=== PATIENT | male | born 1980 | race Caucasian/White ===

== ENCOUNTER 2020-06-09 12:59 | Outpatient (CLI) | payer MEDICARE, SELFPAY ==
--- NOTE | 2020-06-15 14:53 | WPDSIXMINUTE ---
Six Minute Walk Six Minute Walk: DOS: 06/09/2020 REQUESTING: Dr Rawls REASON FOR TESTING: shortness of breath SIX MINUTE WALK This test was conducted per ATS guidelines. The initial saturation was 96%, pulse was 85. The patient walked for 6 minutes without stopping, lowest saturation was 90%. Pulse increased to 106. The saturation was maintained at 91% after waking 2 and a half minutes through the end of walking. During recovery, the saturation returned to baseline. Distance walked was 900 feet/ 274 meters. IMPRESSION: This walk study shows a drop of 6% saturation from 96% to 90%, without dickson hypoxemia. No supplemental oxygen is indicated with exertion. Distance walked is less than expected for age.
--- NOTE | 2020-06-15 15:02 | P.PCNPFT_ITS ---
PFT Interpretation PFT Interpretation: DOS: 06/09/2020 REQUESTING: Dr Rawls REASON FOR TESTING: shortness of breath PULMONARY FUNCTION TESTS Testing was not reliable. The patient had a vasovagal syncopal episode while completing spirometry and he was unable to perform a post spirometry maneuver due to nearly passing out. Spirometry: FEV1 is 34%, 1.49 L severely decreased. FVC 65% 3.9 L. The FEV1/ FVC ratio is reduced. HDE77-81% severely reduced 13%. No bronchodilator was given. Lung volumes: TLC normal 98%. RV increased 137% consistent with air trapping. Increased airway resistance. Diffusion: DLCO moderately reduced 42%. Flow volume loop: Scooping of the expiratory limb consistent with obstruction. IMPRESSION: Extremely severe obstructive ventilatory impairment, mild air trapping, moderate diffusion impairment. No bronchodilator was given as the patient had a vasovagal episode and was unable to perform the post- bronchodilator maneuver. This pattern is consistent with emphysema. Compared to a prior study on 03/25/2015 values are similar. FEV1 was 40% now 34%. Air trapping was present. DLCO was 47% now 42%. Sherry Rawls MD
== END 2020-06-09 13:00 | disposition home or self-care (01) ==
PROVIDERS: PCP Internal Medicine; Visit Provider Internal Medicine Critical Care Medicine
DX: E88.01 Alpha-1-antitrypsin deficiency (principal); J44.9 Chronic obstructive pulmonary disease, unspecified; R94.2 Abnormal results of pulmonary function studies
CPT/HCPCS: 94060; 94618; 94726; 94729

== ENCOUNTER 2020-06-23 12:16 | Inpatient (IN) | payer MEDICARE, SELFPAY ==
[2020-06-23] VITALS (12 sets, daily range): BP systolic 107–142; BP diastolic 70–91; PULSE 72–129; RESP 20–48; TEMP 36.7–37.7; O2SAT 88–95; BMI 32.4
--- NOTE | ~2020-06-23 | XR_ITS ---
EXAMINATION: XR chest 1V portable DATE: 06/26/2020 06:19 INDICATION: Respiratory failure. COVID-19 pneumonia. TECHNIQUE: A single frontal view of the chest was obtained. COMPARISON: Chest single view 06/23/2020, chest CT 01/23/2015 FINDINGS: There are lucencies in the lungs, consistent with emphysema. There are mild airspace opacit ies in right lower lung zone and left mid and lower lung zones. No pleural effusion or pneumothorax. The heart size is normal. There is a stent in the superior vena cava. There is an electronic implant in left anterior chest wall. IMPRESSION: 1. Stable mild airspace opacities in right lower lung zone and left mid and lower lung zones, consist ent with atelectasis versus pneumonia. 2. Severe emphysema. Reviewed, dictated and finalized at location A. CTOR OF COMMUNITY EDUCATION IMPRESSION: 1. Stable mild airspace opacities in right lower lung zone and left mid and low er lung zones, consistent with atelectasis versus pneumonia. 2. Severe emphysema.
--- NOTE | ~2020-06-23 | XR_ITS ---
XR chest 1V portable DATE: 06/23/2020 13:06 INDICATION: Chest pain, shortness of breath. Covid-positive. TECHNIQUE: 2 portable AP views on 06/23/2020 at 1301 hours COMPARISON: 01/23/2015 CT pulmonary scan 01/20/2015 2 view chest FINDINGS: Superior vena cava stent devices again noted. teletypesetter monitor lead overlies the medial lowe r left chest. The lungs are hyperinflated, consistent with chronic obstructive pulmonary disease. No pulmonary infi ltrate or consolidation, pleural effusion or pulmonary vascular congestion or pneumothorax is evident . Normal heart size. Diffuse osteopenia. IMPRESSION: COPD; no active pulmonary disease is noted Reviewed, dictated and finalized at location B. L DIGGER
--- NOTE | 2020-06-23 12:31 | ECG_ITS ---
Measurements Intervals [place] Rate: 84 P: 93 HI: 150 QRS: 75 QRSD: 101 T: 60 QT: 364 QTc: 430 Interpretive Statements SINUS RHYTHM BORDERLINE T WAVE ABNORMALITY- HIGH LATERAL LEADS BASELINE ARTIFACT- I, II, III, AVR, AVL, AVF, V1-V6 BORDERLINE ECG Electronically Signed On 06-23-2020 13:23:28 COMMUNITY RELATIONS ADVISOR by Jose Kothari D.O.
--- NOTE | 2020-06-23 12:48 | ED.SOB ---
HPI - SOB/Dyspnea General Chief Complaint: Shortness of Breath/Dyspnea Stated Complaint: covd +, sob Time Seen by Provider: 06/23/20 12:48 History of Present Illness HPI Narrative: 40 yo male w/ h/o alpha-1 antitrypsin deficiency presents to the ED for SOB. He began having symptoms of COVID-19 about 8 days ago. This included cough, headache, SOB. He subsequently tested positive for COVID-19. He tried to stay at home, but symptoms became worse. room air oxygen saturation was 88%. He has respirtory issues at baseline due to alpha-1 antitrypsin deficiency and sees Dr. hall. Related Data Home Medications Medication Instructions Recorded Confirmed duloxetine 30 mg capsule,delayed 30 mg PO DAILY 11/28/19 11/28/19 release fluticasone fur. 100 mcg-umeclid 1 inhalation INHALATION Q24H 11/28/19 11/28/19 62.5 mcg-vilant 25 mcg inhalat.powder quetiapine 200 mg tablet 200 mg PO DAILY tablet 11/28/19 11/28/19 albuterol sulfate 90 mcg/actuation 2 puff INHALATION Q4H PRN gm 04/27/20 aerosol inhaler multivitamin 1 tablet PO DAILY 04/27/20 trazodone 100 mg tablet 300 mg PO .hs tablet 04/27/20 Allergies Allergy/AdvReac Type Severity Reaction Status Date / Time MOLD Allergy Mild Unknown Uncoded 06/23/20 12:47 Review of Systems Review of Systems: All systems reviewed & are unremarkable except as noted in HPI and below Constitutional: Constitutional: Reports chills and Reports fever(s) Cardiovascular: Cardiovascular: Denies chest pain Respiratory: Respiratory: Reports cough, Reports dyspnea and Reports wheezing Gastrointestinal: Gastrointestinal: Denies abdominal pain, Reports nausea and Denies vomiting Genitourinary: Genitourinary: Denies dysuria Neurologic: Denies confusion Endocrine: Endocrine: Reports fatigue PMFSH Past Medical History Medical History Kylhc-2-lfzhhgjyfeg deficiency Asthma-COPD overlap syndrome Bipolar 1 disorder, depressed, full remission Chest pain Closed kidney laceration Engages in vaping History of tobacco abuse Hydrocele Oxygen dependent Pre-diabetes Severe chronic obstructive pulmonary disease Shortness of Breath SVC syndrome Syncope Surgical History Surgical History History of loop recorder Family History Family History Father Hypertension Family history of diabetes mellitus in first degree relative Mother Hypertension Social History Social History Smoking status: Former smoker Tobacco type: e-cigarettes/vaping Smoking end date: 08/07/06 Alcohol intake: never Drinks per week: 1 Gender identity (if verbalized by the patient): Male Exam Const: General: no acute distress, alert and ill appearing Orientation/consciousness: patient oriented x3 HENMT: Head: normal to inspection Neck: Neck: normal visual inspection Chest: Chest palpation & inspection: normal inspection of the chest Resp: Effort & Inspection: tachypneic Auscultation: wheezes Cardio: Rate: regular rate Rhythm: regular rhythm Skin: General skin exam: normal color Neuro: General: patient oriented x3, moves all extremities and CN's II-XI intact bilaterally Speech: normal speech Extrem: General: normal to inspection and no edema Course Vital Signs Vital signs: Vital Signs Temperature 37.0 C 06/23/20 12:23 Pulse Rate 129 H 06/23/20 12:23 Respiratory Rate 30 H 06/23/20 12:23 Blood Pressure 124/81 06/23/20 12:23 Pulse Oximetry 88 L 06/23/20 12:23 Temperature 37.0 C 06/23/20 12:23 Pulse Rate 81 06/23/20 14:02 Respiratory Rate 26 H 06/23/20 14:02 Blood Pressure 116/74 06/23/20 14:02 Pulse Oximetry 93 06/23/20 14:02 MDM - SOB/Dyspnea MDM Narrative Medical decision making narrative: He has new oxygen requireme
[2020-06-23 13:04] LABS: Hematocrit 44.2 % (42.0-52.0); Hemoglobin 14.8 g/dL (14.0-18.0); Immature Granulocyte Absolute 0.03 K/mm3 (0.00-0.031); Immature Granulocyte Percent A 0.6 % (0-0.5); Lymphocytes Absolute Auto 0.71 K/mm3 (0.9-3.2); Lymphocytes Percent Auto 13.7 % (18.3-44.2); Mean Corpuscular HGB Conc 33.5 g/dl (32-36); Mean Corpuscular Hemoglobin 30.8 pg (26-34); Mean Corpuscular Volume 91.9 fl (80-100); Mean Platelet Volume 10.3 fl (7.4-10.4); Monocytes Absolute Auto 0.4 K/mm3 (0.1-0.6); Monocytes Percent Auto 7.7 % (2.6-8.5); Neutrophils Absolute Auto 4.1 K/mm3 (1.3-6.7); Platelet Count Result 181 k/mm3 (150-375); Red Blood Count 4.81 M/mm3 (4.6-6.20); Red Cell Distribution Width 12.2 % (11.5-14.5); White Blood Count 5.2 K/mm3 (4.5-10.0)
--- NOTE | 2020-06-23 13:19 | PC.NURSE ---
patient medicated as ordered. respiratory now in room. call light in reach. cell phone in reach. on equipment monitor phototypesetting. side rails up x 2.
[2020-06-23] MEDS: ALBUTEROL SULFATE (*SP) AEROSOL 1 PUFF 6 PUFF INHALATION (13:25)
[2020-06-23 13:30] LABS: Alanine Aminotransferase 154 U/L (4-50); Albumin Level 3.7 g/dL (3.5-5.1); Alkaline Phosphatase 76 U/L (38-126); Anion Gap 8 mmol/L (8-16); Aspartate Amino Transferase 71 U/L (17-59); Bilirubin,Total 0.4 mg/dL (0.2-1.3); Blood Urea Nitrogen 14 mg/dL (9-20); Calcium 8.8 mg/dL (8.4-10.2); Carbon Dioxide 22 mmol/L (22-30); Chloride 112 mmol/L (98-107); Estimated CRCL calculation 167 ml/min; Estimated Glomerular Filt Rate > 60; Glucose 173 mg/dL (75-110); Potassium 3.6 mmol/L (3.4-5.0); Sodium 142 mmol/L (137-145)
--- NOTE | 2020-06-23 16:15 | ADMGEN ---
This patient, Zaheer Escalera, was admitted to 3 [facility] Surg Room 322-01 @ 1607. Patient/family oriented to hospital policies and general routines including ID bracelet, bed and alarms, visiting hours, pain management, procedures, bathroom and other care routines, personal items, smoking policy, room service/diet, and visiting hours. Information on how to activate the Rapid Response Team has been discussed. Patient/Family are encouraged to report perceived risks to care and to ask questions if they do not understand what they are told or what they should do.
[2020-06-23] MEDS: traZODone HCL 50 MG TABLET 100 MG PO (20:42)
[2020-06-23] MEDS: busPIRone HCL 10 MG TABLET PO (20:43)
[2020-06-23] MEDS: DULoxetine HCL 60 MG CAPSULE.DR PO (20:43)
[2020-06-23] MEDS: TOPIRAMATE 25 MG TABLET 50 MG PO (20:44)
[2020-06-23] MEDS: QUEtiapine FUMARATE 100 MG TABLET 200 MG PO (20:44)
[2020-06-23] MEDS: CLOPIDOGREL BISULFATE 75 MG TABLET PO (20:44)
[2020-06-23] MEDS: TOPIRAMATE 100 MG TABLET PO (20:44)
[2020-06-23] MEDS: BENZONATATE 100 MG CAPSULE PO (20:45)
[2020-06-23] MEDS: ACETAMINOPHEN 325 MG TABLET 650 MG PO (20:45)
--- NOTE | 2020-06-23 21:37 | PM.IMHP ---
H&P: HPI History of Present Illness Date/Time: 06/23/201729 Chief complaint: Shortness of breath; COVID + Narrative: 06/23/201729 The supervising physician for this history and physical is Dr Felicia Ramirez. Mr. Escalera is a 40yo M with history of alpha-1 antitrypsin deficiency with severe COPD, bipolar disorder with anxiety and depression, history of MRSA endocarditis, vasovagal syncope and chronic migraines who presented to the ED for evaluation of worsening shortness of breath. He describes that he was seen at [facility] in [place] on 06/15/20 for similar symptoms and was discharged from the emergency department that day. His symptoms have been worsening since then and have included fevers/chills and body aches, loss of appetite, loss of taste and smell. He underwent a CT chest with contrast at [facility] that day and his records show CT demonstrated no active cardiopulmonary disease or evidence of pulmonary embolism. His established safety grooving machine operator is Dr. Rawls. He has been using his albuterol nebulizer around twice per day and was not feeling any better so proceeded to the ED. Reports some chest tightness worse with coughing and deep breaths. He was noted to be hypoxic in the ED with O2 saturations at 88% on room air. He is noted to require 2L oxygen at night every night, in fact is also to be using 2-3 L/min supplemental O2 as needed during the day. Workup thus far includes a chest x-ray that shows no active cardiopulmonary disease, routine lab work that is grossly normal. He was placed on supplemental oxygen and started on dexamethasone in the ED. He is admitted to the hospitalist service for further management of acute on chronic respiratory failure secondary to COVID-19. Review of Systems Review of Systems: Narrative: Patient reports shortness of breath, chest tightness worse with cough. Cough productive with green sputum, worse than his baseline. He was nauseous with vomiting yesterday, resolved today. He describes the headache and has chronic migraines. He denies any dizziness or loss of consciousness. Denies diarrhea, constipation, melena, hematochezia. Twelve systems were reviewed with pertinent positives and negatives as per HPI. Except as documented, all other systems were reviewed and are negative. 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 Rawls. Asthma-COPD overlap syndrome Bipolar 1 disorder, depressed, full remission Chest pain Closed kidney laceration Endocarditis History of MRSA endocarditis 2016 Engages in vaping History of tobacco abuse Hydrocele Oxygen dependent Pre-diabetes Severe chronic obstructive pulmonary disease Shortness of Breath SVC syndrome 2016 - patient had complications of a SVC thrombus after an SVC stent was placed for treatment of SVC syndrome after a Port-A-Cath infection Syncope Patient has issues with vasovagal syncope. Loop recorder placed August 2019. Surgical History Surgical History H/O vasectomy 2010 History of loop recorder Family History Family History Father Family history of diabetes mellitus in first degree relative Hypertension Mother Hypertension Grandparent Lung cancer Social History Social History (Updated 06/24/20 @ 07:15 by Rhonda Sifuentes PA-C) Social History: Mr. Escalera lives currently in a camper with his and two of his three daughters. 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 He used to drink alcohol around 1 to 2 drinks per month but he reports he has not had any alcohol since Apr 2020. He reports he used to smoke 1 pack per day cigarettes x 20 years prior to
[2020-06-24] VITALS (8 sets, daily range): BP systolic 102–151; BP diastolic 58–92; PULSE 53–91; RESP 16–24; TEMP 36.2–37; O2SAT 91–94
[2020-06-24] MEDS: ALBUTEROL SULFATE (*SP) AEROSOL 1 PUFF 2 PUFF INHALATION ×4 (03:27→20:01)
[2020-06-24] MEDS: DEXAMETHASONE SOD PHOS INJ 4 MG/ML VIAL 6 MG IV PUSH (10:10)
[2020-06-24] MEDS: BENZONATATE 100 MG CAPSULE PO ×2 (10:11→18:19)
[2020-06-24] MEDS: ACETAMINOPHEN 325 MG TABLET 650 MG PO ×2 (10:18→21:39)
--- NOTE | 2020-06-24 13:10 | PM.IMPN ---
Progress Note: A&P Assessment and Plan (1) Acute on chronic respiratory failure with hypoxia: Code(s): J96.21 - Acute and chronic respiratory failure with hypoxia Status: Acute Assessment and Plan: Patient tested positive for COVID-19 on 06/15/20 at [facility]. His symptoms began 06/14/20. Patient is mildly hypoxic. He is known to use 2L supplemental oxygen every night, also to be using 2-3 L supplemental O2 as needed during the day even prior to anabel COVID. Continue albuterol MDI and supplemental O2; monitor O2 saturations. Continue azithromycin. Continue home Symbicort. He has been started on dexamethasone by the ED provider, continue this. (2) Asthma-COPD overlap syndrome: Code(s): J44.9 - Chronic obstructive pulmonary disease, unspecified Status: Acute Assessment and Plan: See above. Continue steroids and albuterol. (3) COVID-19: Code(s): U07.1 - COVID-19 Status: Acute Assessment and Plan: COVID positive 06/15/20. Continue droplet isolation. (4) Xgtso-3-arggdiaizpw deficiency: Code(s): E88.01 - Vuqjz-5-tgxegtyycxc deficiency Status: Chronic Assessment and Plan: Follows with Dr. Rawls. He used to be on replacement therapy however has not been able to get this medication this year due to insurance changes. Appreciate Dr. Rawls's recommendations. (5) Bipolar 1 disorder, depressed, full remission: Code(s): F31.76 - Bipolar disorder, in full remission, most recent episode depressed Status: Chronic Assessment and Plan: Stable. Continue home medications. Subjective Date/time seen: 06/24/20 1130 Interval history: Mr. Escalera is a 40yo M admitted for acute on chronic respiratory failure, COVID-19. He reports feeling about the same as yesterday. Not really any improvement in his shortness of breath or productive cough. He has significant body aches and headache. He describes chest tightness worse with deep breath and coughing. No nausea or vomiting, appetite improving. Review of Systems Review of Systems: All systems reviewed & are unremarkable except as noted in HPI and below Exam Narrative: Exam Narrative: General: Male resting comfortably supine in bed eating dinner in mild respiratory distress. HEENT: Normocephalic, atraumatic, EOMI, oropharynx clear without erythema or exudate. Neck: Supple. Chest: Diffuse expiratory wheezing bilaterally. Tachypneic with conversational dyspnea. Tolerating 2 L O2 nasal cannula Heart: Heart rate and rhythm are regular. Abdomen: Soft, nontender, nondistended, bowel sounds present. Extremities: Radial and pedal pulses 2+ bilateral. No edema, cyanosis or clubbing. Neurologic: Alert and oriented. No focal neurological deficits are appreciated. Speech is clear. Psychiatric: Mood and affect are normal; pleasant and cooperative. Objective Data Vital Signs Vital Signs: Last Vital Signs Temp 98.6 F 06/24/20 16:00 Pulse 75 06/24/20 16:00 Resp 18 06/24/20 16:00 BP 127/80 06/24/20 16:00 Pulse Ox 92 06/24/20 16:00 Intake/Output Intake/Output: Intake & Output 06/21/20 06/22/20 06/23/20 06/24/20 23:59 23:59 23:59 23:59 Intake Total 550 740 Balance 550 740 Meds/Results Medications: Active Medications Generic Name Dose Route Start Last Admin Trade Name Freq PRN Reason Stop Dose Admin Acetaminophen 650 mg 06/23/20 17:43 06/24/20 10:18 Acetaminophen 325 Mg Tablet PO 650 mg Q4H PRN Administration Pain RATED 1-3 or Fever Albuterol 2 puff 06/23/20 16:00 06/24/20 09:44 Albuterol Sulfate (*Sp) Aerosol 1 Puff INHALATION 2 puff Q4HRT PEPE Administration Benzonatate 100 mg 06/23/20 17:35 06/24/20 10
--- NOTE | 2020-06-24 17:48 | PCRCNOTE ---
Window of time for administration has passed. See next scheduled administration.
[2020-06-24] MEDS: QUEtiapine FUMARATE 100 MG TABLET 200 MG PO (21:37)
[2020-06-24] MEDS: traZODone HCL 50 MG TABLET 100 MG PO (21:38)
[2020-06-24] MEDS: TOPIRAMATE 25 MG TABLET 50 MG PO (21:38)
[2020-06-24] MEDS: DULoxetine HCL 60 MG CAPSULE.DR PO (21:38)
[2020-06-24] MEDS: busPIRone HCL 10 MG TABLET PO (21:38)
[2020-06-24] MEDS: CLOPIDOGREL BISULFATE 75 MG TABLET PO (21:38)
[2020-06-24] MEDS: TOPIRAMATE 100 MG TABLET PO (21:38)
[2020-06-25] VITALS (16 sets, daily range): BP systolic 113–123; BP diastolic 56–74; PULSE 54–99; RESP 16–22; TEMP 36.1–36.9; O2SAT 85–93
[2020-06-25] MEDS: ALBUTEROL SULFATE (*SP) AEROSOL 1 PUFF 2 PUFF INHALATION ×6 (00:17→21:32)
[2020-06-25 06:46] LABS: Hemoglobin 13.7 g/dL (14.0-18.0); Mean Corpuscular HGB Conc 34.3 g/dl (32-36); Mean Corpuscular Hemoglobin 30.6 pg (26-34); Mean Corpuscular Volume 89.5 fl (80-100); Mean Platelet Volume 9.8 fl (7.4-10.4); Platelet Count Result 314 k/mm3 (150-375); Red Blood Count 4.47 M/mm3 (4.6-6.20); Red Cell Distribution Width 11.9 % (11.5-14.5); White Blood Count 6.6 K/mm3 (4.5-10.0)
[2020-06-25 07:10] LABS: Anion Gap 7 mmol/L (8-16); Blood Urea Nitrogen 14 mg/dL (9-20); CRP 1.6 mg/dL (<1.0); Calcium 8.9 mg/dL (8.4-10.2); Carbon Dioxide 22 mmol/L (22-30); Chloride 111 mmol/L (98-107); Estimated CRCL calculation 151 ml/min; Estimated Glomerular Filt Rate > 60; Glucose 163 mg/dL (75-110); Magnesium 2.4 mg/dL (1.6-2.3); Potassium 3.4 mmol/L (3.4-5.0); Sodium 140 mmol/L (137-145)
[2020-06-25] MEDS: DEXAMETHASONE SOD PHOS INJ 4 MG/ML VIAL 6 MG IV PUSH (08:49)
[2020-06-25] MEDS: POTASSIUM CHLORIDE 20 MEQ TABLET PO (08:49)
[2020-06-25] MEDS: BENZONATATE 100 MG CAPSULE PO ×2 (08:55→20:31)
--- NOTE | 2020-06-25 13:10 | HOMEO2EVAL ---
Home Oxygen Evaluation RC: Home Oxygen (O2) Evaluation Start: 06/25/20 08:41 Freq: ONCE Status: Active Protocol: RPE Activity Type Activity Date Activity User E-Sign Co-Sign Detail Recorded Client Recorded Date Recorded By Document 06/25/20 11:30 ARIN [id number] 06/25/20 13:10 ARIN Document 06/25/20 11:33 ARIN [email or web address] 06/25/20 13:10 ARIN Document 06/25/20 11:36 ARIN [email or web address] 06/25/20 13:10 ARIN Document 06/25/20 11:40 ARIN [email or web address] 06/25/20 13:10 ARIN Document 06/25/20 11:42 ARIN [email or web address] 06/25/20 13:10 ARIN Document 06/25/20 11:45 ARIN [email or web address] 06/25/20 13:10 [facility] Document 06/25/20 11:55 ARIN [email or web address] 06/25/20 13:10 ARIN 06/25/20 06/25/20 06/25/20 11:30 11:33 11:36 Home O2 Evaluation Test Phase Resting Resting Resting Oxygen Delivery Room Air Nasal Cannula Nasal Cannula Oxygen Flow Rate (L/min) 1 2 Pulse Oximetry (90-100 %) 87 L 88 L 91 Home Oxygen Evaluation Comments Treatment Charges O2 Evaluation 06/25/20 06/25/20 06/25/20 11:40 11:42 11:45 Home O2 Evaluation Test Phase Exercise Exercise Exercise Oxygen Delivery Nasal Cannula Nasal Cannula Nasal Cannula Oxygen Flow Rate (L/min) 2 3 4 Pulse Oximetry (90-100 %) 85 L 87 L 90 Home Oxygen Evaluation Comments Treatment Charges 06/25/20 11:55 Home O2 Evaluation Test Phase Resting Oxygen Delivery Nasal Cannula Oxygen Flow Rate (L/min) 2 Pulse Oximetry (90-100 %) 91 Home Oxygen Evaluation Comments PT REQUIRES 2L AT REST AND 4L WITH EXERTION Treatment Charges
--- NOTE | 2020-06-25 13:15 | PCRCNOTE ---
PT CURRENTLY HAS HOME O2 WITH [facility]. SPOKE TO TRICIA AT [facility]. SHE IS AWARE OF INCREASED O2 NEEDS. PT STATED HE DOES HAVE A PORTABLE O2 TANK FOR TRANSPORT THAT HIS FAMILY WILL BRING FROM HOME UPON DISCHARGE. WILL FAX OVER REQUIRED ORDER/PAPERWORK FOR NEW REQUIREMENTS AND FOLLOW NEEDED.
--- NOTE | 2020-06-25 14:20 | PM.CNPUL ---
Assessment and Plan Assessment and plan (1) COVID-19: Code(s): U07.1 - COVID-19 Status: Acute Assessment and Plan: He has COVID infection with increased worsening of his severe COPD. CXR does not show infiltrates, however he has severe COPD with hyperlucency, so an infiltrate may be harder to see on a plain film. He is on higher O2 now, uses O2 at home at night and only sometimes in the day. Now on 2 L/min, respiratory rate has been 24, occasionally up to 40. He is able to walk to the bathroom and keep food down, however he is extremely short of breath and feels exhausted. I spoke with Rhonad Sifuentes PA-C. Will add remdesivir to his dexamethasone for COVID treatment, continue O2, nasal saline for crusted dry nasal bleeding, may be better with a mask than cannula for comfort. He wants a shower and clean sheets. Will add routine prophylactic dose anticoagulation with Lovenox. He had a home O2 study today, needs 4 at rest and 5 L/min with Oxymizer with exertion. This is more than he needed at home, however he has end stage COPD at baseline due to his alpha-1 so this is not excessive amount of O2. He may be close to being able to go home, however he feels just as bad as he did at admission, and should be somewhat better before leaving. We had a long visit, I called the RN to have his room temp addressed as it was sweltering in his room and he was uncomfortable. With COVID, fans are not allowed. Maintenance Dept was notifoed. We will check his records from [facility] to get the dates of testing and any treatment he had there. (2) Asthma-COPD overlap syndrome: Code(s): J44.9 - Chronic obstructive pulmonary disease, unspecified Status: Acute Assessment and Plan: life long asthma and COPD since age 29, quit smoking 2006 (3) Shortness of Breath: Code(s): R06.02 - Shortness of breath Status: Acute Assessment and Plan: increased prior to this admission (4) History of tobacco abuse: Code(s): Z87.891 - Personal history of nicotine dependence Status: Acute Assessment and Plan: quit 2006 (5) Olyfs-0-gqoeowxuxll deficiency: Code(s): E88.01 - Pufgl-9-zvaquinuieb deficiency Status: Chronic Assessment and Plan: not on replacement therapy due to lack of insurance coverage History of Present Illness History of Present Illness Consult date: 06/25/20 Requesting physician: Rhonda Sifuentes PA-C Reason for consult: other (COVID exacerbation of COPD with alpha-1) Chief complaint: Shortness of breath; COVID + Narrative: NEW: Zaheer Escalera is a 41 yo man with alpha-1 antitrypsin deficiency, lifelong asthma. He came for an initial office visit 04/28; has not been able to get on replacement therapy due to insurance issues. He had oxygen at home to use at night and during the day p.r.n. His became infected with COVID and brought it home to the family. It spread through everyone, his children, in-laws, and everyone else had mild disease however he had loss of taste and smell, increased shortness of breath, coughing, minimal sputum, poor appetite, high fevers. He was seen at [facility] in [place] Jun 15, was sent home. He worsened, came here Jun 23 and was admitted with hypoxemia 88%. He has been here 2 days, does not feel any better. Symptoms are persistent except that his taste and smell have improved a little. He is not short of breath walking short distances to the bathroom but longer distances or more activity, he feels tired and short of breath. His labs cuauhtemoc increase in AST 71, ALT 154, and mild increase in CRP 1.6. His CXR does nto show infiltrate however he has end stage COPD with emphysema, so he is hyp
--- NOTE | 2020-06-25 16:32 | PM.IMPN ---
Progress Note: A&P Assessment and Plan (1) Acute on chronic respiratory failure with hypoxia: Code(s): J96.21 - Acute and chronic respiratory failure with hypoxia Status: Acute Assessment and Plan: Patient tested positive for COVID-19 on 06/15/20 at [facility]. His symptoms began 06/14/20. Patient is mildly hypoxic. He is known to use 2L supplemental oxygen every night, also to be using 2-3 L supplemental O2 as needed during the day even prior to anabel COVID. Home O2 evaluation today suggests 2L rest; 4L with activity. Continue albuterol MDI and supplemental O2; monitor O2 saturations. Continue azithromycin, home Symbicort, dexamethasone. Discussed case with Dr Rawls, start Remdesivir. (2) Asthma-COPD overlap syndrome: Code(s): J44.9 - Chronic obstructive pulmonary disease, unspecified Status: Acute Assessment and Plan: See above. Continue steroids and albuterol. (3) COVID-19: Code(s): U07.1 - COVID-19 Status: Acute Assessment and Plan: COVID positive 06/15/20. Continue droplet isolation. (4) Lwdqn-2-seyazvmjoew deficiency: Code(s): E88.01 - Daxyc-1-gqjailcjfmv deficiency Status: Chronic Assessment and Plan: Follows with Dr. Rawls. He used to be on replacement therapy however has not been able to get this medication this year due to insurance changes. Appreciate Dr. Rawls's recommendations. (5) Bipolar 1 disorder, depressed, full remission: Code(s): F31.76 - Bipolar disorder, in full remission, most recent episode depressed Status: Chronic Assessment and Plan: Stable. Continue home medications. Additional Plan Continue home Plavix which he takes for history of prior SVC thrombosis. Subjective Date/time seen: 06/25/20 1330 Interval history: Mr. Escalera is a 40yo M with alpha-1 antitrypsin deficiency admitted for acute on chronic respiratory failure, COVID-19. His cough and shortness of breath feel about the same as yesterday. He has significant body aches and fatigue. He describes chest tightness worse with deep breath and coughing. No nausea or vomiting, appetite improving. Starting to get his smell and taste back. Review of Systems Review of Systems: All systems reviewed & are unremarkable except as noted in HPI and below Exam Narrative: Exam Narrative: General: Male resting comfortably supine in bed eating lunch in mild respiratory distress. HEENT: Normocephalic, atraumatic, EOMI, oral mucosa moist. Neck: Supple. Chest: Diffuse expiratory wheezing bilaterally. Tachypneic with conversational dyspnea. Tolerating 2 L O2 nasal cannula. Heart: Heart rate and rhythm are regular. Abdomen: Soft, nontender, nondistended, bowel sounds present. Extremities: Radial and pedal pulses 2+ bilateral. No edema, cyanosis or clubbing. Neurologic: Alert and oriented. No focal neurological deficits are appreciated. Speech is clear. Psychiatric: Mood and affect are normal; pleasant and cooperative. Objective Data Vital Signs Vital Signs: Last Vital Signs Temp 98.3 F 06/25/20 12:00 Pulse 70 06/25/20 12:12 Resp 18 06/25/20 12:12 BP 117/71 06/25/20 12:00 Pulse Ox 92 06/25/20 12:00 Intake/Output Intake/Output: Intake & Output 06/22/20 06/23/20 06/24/20 06/25/20 23:59 23:59 23:59 23:59 Intake Total 550 2113 920 Output Total 800 300 Balance 550 2514 784 Meds/Results Medications: Active Medications Generic Name Dose Route Start Last Admin Trade Name Freq PRN Reason Stop Dose Admin Acetaminophen 650 mg 06/23/20 17:43 06/24/20 21:39 Acetaminophen 325 Mg Tablet PO 650 mg Q4H PRN Administration Pain RATED 1-3 or Fever Albuterol 2 puff 06/23/20 16:0
[2020-06-25] MEDS: REMDESIVIR 200 MG/NS 250 ML 200 MG/250 ML BAG 250 MG IVPB (16:39)
[2020-06-25] MEDS: SALINE 0.65% NAS SOLN 44 ML BTL 1 SPRAY NASAL (16:43)
[2020-06-25] MEDS: traZODone HCL 50 MG TABLET 100 MG PO (20:16)
[2020-06-25] MEDS: QUEtiapine FUMARATE 100 MG TABLET 200 MG PO (20:16)
[2020-06-25] MEDS: CLOPIDOGREL BISULFATE 75 MG TABLET PO (20:16)
[2020-06-25] MEDS: busPIRone HCL 10 MG TABLET PO (20:17)
[2020-06-25] MEDS: TOPIRAMATE 100 MG TABLET PO (20:17)
[2020-06-25] MEDS: DULoxetine HCL 60 MG CAPSULE.DR PO (20:17)
[2020-06-25] MEDS: TOPIRAMATE 25 MG TABLET 50 MG PO (20:17)
[2020-06-26] VITALS (9 sets, daily range): BP systolic 102–131; BP diastolic 51–80; PULSE 56–87; RESP 18–20; TEMP 36.3–37.1; O2SAT 91–94
[2020-06-26] MEDS: ALBUTEROL SULFATE (*SP) AEROSOL 1 PUFF 2 PUFF INHALATION ×6 (00:10→21:07)
[2020-06-26 06:34] LABS: Basophils Percent Auto 0.4 % (0.2-1.2); Eosinophils Percent Auto 0.2 % (0-4.4); Hematocrit 39.1 % (42.0-52.0); Hemoglobin 13.2 g/dL (14.0-18.0); Immature Granulocyte Absolute 0.11 K/mm3 (0.00-0.031); Immature Granulocyte Percent A 1.3 % (0-0.5); Lymphocytes Absolute Auto 1.42 K/mm3 (0.9-3.2); Lymphocytes Percent Auto 16.9 % (18.3-44.2); Mean Corpuscular HGB Conc 33.8 g/dl (32-36); Mean Corpuscular Hemoglobin 30.2 pg (26-34); Mean Corpuscular Volume 89.5 fl (80-100); Mean Platelet Volume 9.4 fl (7.4-10.4); Monocytes Absolute Auto 0.8 K/mm3 (0.1-0.6); Monocytes Percent Auto 9.6 % (2.6-8.5); Neutrophils Percent Auto 71.6 % (45.5-73.1); Platelet Count Result 388 k/mm3 (150-375); Red Blood Count 4.37 M/mm3 (4.6-6.20); Red Cell Distribution Width 12.1 % (11.5-14.5); White Blood Count 8.4 K/mm3 (4.5-10.0)
[2020-06-26 06:54] LABS: Alanine Aminotransferase 138 U/L (4-50); Albumin Level 3.2 g/dL (3.5-5.1); Alkaline Phosphatase 98 U/L (38-126); Anion Gap 8 mmol/L (8-16); Aspartate Amino Transferase 57 U/L (17-59); Bilirubin,Total 0.3 mg/dL (0.2-1.3); Blood Urea Nitrogen 14 mg/dL (9-20); CRP 0.9 mg/dL (<1.0); Calcium 8.5 mg/dL (8.4-10.2); Carbon Dioxide 23 mmol/L (22-30); Chloride 109 mmol/L (98-107); Estimated CRCL calculation 174 ml/min; Estimated Glomerular Filt Rate > 60; Glucose 200 mg/dL (75-110); Magnesium 2.3 mg/dL (1.6-2.3); Potassium 3.4 mmol/L (3.4-5.0); Sodium 140 mmol/L (137-145)
[2020-06-26] MEDS: BENZONATATE 100 MG CAPSULE PO ×2 (08:08→20:26)
[2020-06-26] MEDS: ENOXAPARIN 40 MG/0.4 ML SYRINGE SUB-Q (08:08)
[2020-06-26] MEDS: DEXAMETHASONE SOD PHOS INJ 4 MG/ML VIAL 6 MG IV PUSH (08:08)
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
[2020-06-26] MEDS: POTASSIUM CHLORIDE 20 MEQ TABLET 40 MEQ PO (15:57)
[2020-06-26] MEDS: REMDESIVIR 100 MG/NS 250 ML 100 MG/250 ML BAG 250 MG IVPB (15:57)
[2020-06-26] MEDS: traZODone HCL 50 MG TABLET 100 MG PO (20:26)
[2020-06-26] MEDS: busPIRone HCL 10 MG TABLET PO (20:27)
[2020-06-26] MEDS: DULoxetine HCL 60 MG CAPSULE.DR PO (20:27)
[2020-06-26] MEDS: TOPIRAMATE 25 MG TABLET 50 MG PO (20:27)
[2020-06-26] MEDS: QUEtiapine FUMARATE 100 MG TABLET 200 MG PO (20:27)
[2020-06-26] MEDS: CLOPIDOGREL BISULFATE 75 MG TABLET PO (20:27)
[2020-06-26] MEDS: TOPIRAMATE 100 MG TABLET PO (20:27)
[2020-06-27] VITALS: BP 114/65; PULSE 58; RESP 18; TEMP 36.6; O2SAT 93
[2020-06-27 04:00] VITALS: BP 119/75; PULSE 57; RESP 18; TEMP 36.3; O2SAT 94
[2020-06-27 07:26] LABS: Basophils Absolute Auto 0.1 K/mm3 (0.0-0.1); Basophils Percent Auto 0.6 % (0.2-1.2); Eosinophils Absolute Auto 0.1 K/mm3 (0-0.3); Eosinophils Percent Auto 0.6 % (0-4.4); Hematocrit 40.8 % (42.0-52.0); Hemoglobin 13.7 g/dL (14.0-18.0); Immature Granulocyte Absolute 0.21 K/mm3 (0.00-0.031); Lymphocytes Absolute Auto 1.66 K/mm3 (0.9-3.2); Lymphocytes Percent Auto 15.4 % (18.3-44.2); Mean Corpuscular HGB Conc 33.6 g/dl (32-36); Mean Corpuscular Hemoglobin 30.3 pg (26-34); Mean Corpuscular Volume 90.3 fl (80-100); Mean Platelet Volume 9.4 fl (7.4-10.4); Monocytes Percent Auto 9.2 % (2.6-8.5); Neutrophils Absolute Auto 7.8 K/mm3 (1.3-6.7); Neutrophils Percent Auto 72.2 % (45.5-73.1); Platelet Count Result 417 k/mm3 (150-375); Red Blood Count 4.52 M/mm3 (4.6-6.20); Red Cell Distribution Width 12.1 % (11.5-14.5); White Blood Count 10.8 K/mm3 (4.5-10.0)
[2020-06-27 07:43] LABS: Alanine Aminotransferase 127 U/L (4-50); Albumin Level 3.2 g/dL (3.5-5.1); Alkaline Phosphatase 94 U/L (38-126); Anion Gap 5 mmol/L (8-16); Aspartate Amino Transferase 45 U/L (17-59); Bilirubin,Total 0.3 mg/dL (0.2-1.3); Blood Urea Nitrogen 15 mg/dL (9-20); Calcium 8.8 mg/dL (8.4-10.2); Carbon Dioxide 26 mmol/L (22-30); Chloride 109 mmol/L (98-107); Estimated CRCL calculation 151 ml/min; Estimated Glomerular Filt Rate > 60; Glucose 131 mg/dL (75-110); Magnesium 2.3 mg/dL (1.6-2.3); Sodium 140 mmol/L (137-145)
[2020-06-27 08:00] VITALS: BP 122/70; PULSE 68; RESP 20; TEMP 36.7; O2SAT 93
[2020-06-27 08:46] VITALS: O2SAT 92
[2020-06-27] MEDS: ALBUTEROL SULFATE (*SP) AEROSOL 1 PUFF 2 PUFF INHALATION ×2 (08:46→13:05)
[2020-06-27] MEDS: ENOXAPARIN 40 MG/0.4 ML SYRINGE SUB-Q (09:50)
[2020-06-27] MEDS: DEXAMETHASONE SOD PHOS INJ 4 MG/ML VIAL 6 MG IV PUSH (09:50)
[2020-06-27 12:00] VITALS: BP 125/77; PULSE 92; RESP 20; TEMP 36.8; O2SAT 94
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
[2020-06-27] MEDS: REMDESIVIR 100 MG/NS 250 ML 100 MG/250 ML BAG 250 MG IVPB (13:01)
== END 2020-06-27 14:50 | disposition home or self-care (01) | DRG 177 ==
LOC: ANHED 14:19 → ANH3MEDSUR 06-24 03:59
PROVIDERS: Admitting Provider Internal Medicine; Emergency Provider Emergency Medicine; PCP Internal Medicine; Visit Provider Physician Assistant
DX: U07.1 COVID-19 (principal); J96.21 Acute and chronic respiratory failure with hypoxia; E88.01 Alpha-1-antitrypsin deficiency; J43.9 Emphysema, unspecified; J45.909 Unspecified asthma, uncomplicated; F31.76 Bipolar disorder, in full remission, most recent episode depressed; R73.03 Prediabetes; Z23 Encounter for immunization; Z79.02 Long term (current) use of antithrombotics/antiplatelets; Z79.899 Other long term (current) drug therapy; Z86.14 Personal history of Methicillin resistant Staphylococcus aureus infection; Z87.891 Personal history of nicotine dependence; Z99.81 Dependence on supplemental oxygen
CPT/HCPCS: 36415; 71045; 80048; 80053; 83735; 85025; 85027; 86140; 90471; 90653; 93005; 94618; 94640; 96374; 99291; A9270; G0008; J0456; J1100; J1650; J7060

== ENCOUNTER 2020-12-07 13:32 | Outpatient (CLI) | payer MEDICARE, MEDICAID, SELFPAY ==
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
== END 2020-12-07 13:33 | disposition home or self-care (01) ==
PROVIDERS: PCP Internal Medicine; Visit Provider Internal Medicine
DX: M65.311 Trigger thumb, right thumb (principal); M19.041 Primary osteoarthritis, right hand
CPT/HCPCS: 73120

== ENCOUNTER 2020-12-17 09:23 | Outpatient (CLI) | payer MEDICARE, MEDICAID, SELFPAY ==
--- NOTE | ~2020-12-17 | XR_ITS ---
XR hand LT min 3V DATE: 12/17/2020 09:40 INDICATION: Pain at first metacarpal joint TECHNIQUE: 3 views COMPARISON: 10/10/2016 left wrist FINDINGS: There is severe osteoarthritis at the first carpometacarpal joint. There is severe narrowing consistent with osteoarthritis at the triscaphe joint. No fracture or dislocation, periosteal reaction or bone destruction. IMPRESSION: Severe osteoarthritis at first carpometacarpal joint Osteoarthritis at triscaphe joint Reviewed, dictated and finalized at location A.
== END 2020-12-17 09:24 | disposition home or self-care (01) ==
LOC: ANHIMG 09:30
PROVIDERS: PCP Internal Medicine; Visit Provider Plastic Surgery
DX: M18.12 Unilateral primary osteoarthritis of first carpometacarpal joint, left hand (principal); M19.042 Primary osteoarthritis, left hand
CPT/HCPCS: 73130

== ENCOUNTER → 2021-01-04 02:21 | Outpatient (CLI) | payer MEDICARE, MEDICAID, SELFPAY ==
[2021-01-04 17:04] LABS: SARS-CoV-2 RNA PCR Negative
== END ==
PROVIDERS: Nurse Practitioner; PCP Internal Medicine; Visit Provider Plastic Surgery
DX: R06.02 Shortness of breath (principal); Z20.822 Contact with and (suspected) exposure to COVID-19
CPT/HCPCS: C9803; U0003; U0005

== ENCOUNTER 2021-01-04 09:39 | Emergency (ER) | payer OTHER, MEDICARE, MEDICAID, SELFPAY ==
[2021-01-04] VITALS (7 sets, daily range): BP systolic 113–152; BP diastolic 78–101; PULSE 73–87; RESP 18–20; TEMP 36.6; O2SAT 99
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
--- NOTE | 2021-01-04 11:28 | ECG_ITS ---
Measurements Intervals [place] Rate: 77 P: 43 NH: 161 QRS: 69 QRSD: 94 T: 75 QT: 372 QTc: 423 Interpretive Statements SINUS RHYTHM NORMAL ECG Electronically Signed On 01-04-2021 12:34:52 CDT by Jose Kothari D.O.
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
[2021-01-04] MEDS: IPRATROPIUM BR 0.02% INH SOLN 0.5 MG/2.5 ML VIAL INHALATION (11:46)
[2021-01-04] MEDS: ALBUTEROL SULFATE NEB 2.5 MG/0.5 ML INH 5 MG INHALATION (11:46)
== END 2021-01-04 13:21 | disposition home or self-care (01) ==
PROVIDERS: Emergency Provider Emergency Medicine; PCP Internal Medicine
DX: M25.422 Effusion, left elbow (principal); J44.1 Chronic obstructive pulmonary disease with (acute) exacerbation; F31.9 Bipolar disorder, unspecified; R73.03 Prediabetes; E88.01 Alpha-1-antitrypsin deficiency; Z87.891 Personal history of nicotine dependence; M17.11 Unilateral primary osteoarthritis, right knee; M19.032 Primary osteoarthritis, left wrist; M19.022 Primary osteoarthritis, left elbow; M47.816 Spondylosis without myelopathy or radiculopathy, lumbar region; V47.5XXA Car driver injured in collision with fixed or stationary object in traffic accident, initial encounter
CPT/HCPCS: 70450; 71046; 72125; 72131; 73080; 73110; 73564; 73610; 93005; 94640; 99284; A4565

== ENCOUNTER 2021-01-07 01:46 | Day surgery (SDC) | payer MEDICARE, MEDICAID, SELFPAY ==
[2020-12-31 14:12] VITALS: BMI 29.8
[2021-01-07] VITALS (12 sets, daily range): BP systolic 101–135; BP diastolic 71–102; PULSE 79–97; RESP 10–20; TEMP 36.2–36.5; O2SAT 95–99
--- NOTE | ~2021-01-07 | XR_ITS ---
EXAMINATION: XR surgery orthopedic EXAM DATE: 01/07/2021 14:53 INDICATION: Right thumb arthroplasty. TECHNIQUE: Fluoroscopy used during XR surgery orthopedic performed by Dr. Ted Knutson MD. Radi ologist was not present for the imaging or procedure. Total fluoroscopic time of 13 seconds. The DA P for this procedure was 0.0067 radcm2. A total of 3 images sent to PACS from the exam. FINDINGS: The right trapezium has been resected. There is gas in the surgical defect. Correlate wit h procedure note. IMPRESSION: Fluoroscopy used during right trapezium resection. Reviewed, dictated and finalized at location B.
--- NOTE | 2021-01-07 11:10 | WPDANESEPPF ---
Anes - Initial Pre Proc Eval Procedure: Operation Date: 01/07/21 12:45 Proposed Procedures p Right Trapezium Reconstruction Arthroplasty With Arthrex Internal Brace And Release Of Right Trigger Thumb - Ted Knutson MD Date/Time: 01/07/21 11:10 Surgeon: Ted Knutson MD Pre Op Diagnosis: rt first carpometacarpal joint OA Patient Data Age: 40 Gender: M Height: 6 ft 4 in Weight: 111.6 kg Allergies Allergy/AdvReac Type Severity Reaction Status Date / Time pollen extracts Allergy Sneezing Verified 01/07/21 11:06 iodine AdvReac Itching/leonel Verified 01/07/21 11:06 h Home Medications Medication Instructions Recorded Confirmed Type duloxetine 30 mg capsule,delayed 60 mg PO HS 11/28/19 12/31/20 History release quetiapine 200 mg tablet 300 mg PO HS tablet 11/28/19 12/31/20 History albuterol sulfate 90 mcg/actuation 2 puff INHALATION Q4H PRN gm 04/27/20 12/31/20 History aerosol inhaler multivitamin 1 tablet PO HS 04/27/20 12/31/20 History trazodone 100 mg tablet 100 mg PO HS tablet 04/27/20 12/31/20 History topiramate 150 mg PO HS 06/23/20 12/31/20 History benzonatate 100 mg PO BID PRN #30 cap 06/27/20 12/31/20 Rx ipratropium-albuterol 3 ml INHALATION QID PRN #90 ml 06/27/20 12/31/20 Rx clopidogrel 75 mg tablet 75 mg PO HS #90 tablet 10/14/20 12/31/20 Rx tramadol 50 mg tablet 50 mg PO BID PRN #30 tablet 12/16/20 12/31/20 Rx budesonide-formoterol [Symbicort] 2 puff INHALATION BID 12/31/20 12/31/20 History escitalopram oxalate [Lexapro] 10 mg PO DAILY 12/31/20 12/31/20 History Patient hx anesthesia problems: none Family hx anesthesia problems: post op nausea/vomiting PMFSH Past Medical History Medical History Acute superior vena cava thrombosis Complications after Port-A-Cath infection, remains on Plavix long-term [id number]-[id number] deficiency Follows with Dr. Rawls. Asthma-COPD overlap syndrome Bipolar 1 disorder, depressed, full remission Chest pain Closed kidney laceration Endocarditis History of MRSA endocarditis 2015 Engages in vaping History of tobacco abuse Hydrocele Oxygen dependent Pre-diabetes Severe chronic obstructive pulmonary disease Shortness of Breath SVC syndrome 2016 - patient had complications of a SVC thrombus after an SVC stent was placed for treatment of SVC syndrome after a Port-A-Cath infection Syncope Patient has issues with vasovagal syncope. Loop recorder placed August 2019. Surgical History Surgical History H/O vasectomy 2010 History of loop recorder Family History Family History Father Family history of diabetes mellitus in first degree relative Hypertension Mother Hypertension Grandparent Lung cancer Social History Social History Social History: Mr. Escalera lives currently in a camper with his and two of his three daughters. 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 He used to drink alcohol around 1 to 2 drinks per month but he reports he has not had any alcohol since Apr 2020. He reports he used to smoke 1 pack per day cigarettes x 20 years prior to his alpha-1 diagnosis and quit smoking 11 years ago. He uses marijuana in edible form around once per week. PCP: Dr Imelda VARGAS: Virgen, his . Code: Full code status Smoking packs per day: 1.5 Smoking cigarettes per day: 30.0 Years smoked: 23 Smoking pack-years: 34.50 Smoking status: Former smoker Tobacco type: cigarettes and e-cigarettes/vaping Smoking end date: 08/07/09 Alcohol intake: former Drinks per week: 1 Substance use: former Substance use type: crack/cocaine Other substance usage details: SLOAN - 12/31/20 Last use: 1 YR AGO Additional living arrangements comments: [facility]
[2021-01-07] MEDS: LACTATED RINGERS 1,000 ML 30 ML IV CONT ×2 (11:55→14:59)
--- NOTE | 2021-01-07 12:01 | SUR.PREOP ---
dr mercedes aware of bp 135/102 pre op.
--- NOTE | 2021-01-07 13:04 | SUR.PREOP ---
updated pt of delay in procedure.
[2021-01-07] MEDS: ceFAZolin 2 GM/D5W 50 ML 2 GM/50 ML BAG IVPB (13:25)
[2021-01-07] MEDS: LIDO 1%/EPINEPHRINE 1:100,000 50 ML VIAL INFILTRATE (13:49)
[2021-01-07] MEDS: BUPIVACAINE HCL 0.5% PF 30 ML VIAL INFILTRATE (13:49)
--- NOTE | 2021-01-07 15:47 | PM.PROC ---
Procedure Note - Detailed Date of procedure: 01/07/21 Pre-op diagnosis: rt first carpometacarpal joint OA Post-op diagnosis: same Procedure performed: Right trapezium resection arthroplasty with Arthrex internal brace Description of procedure: The patient's right wrist was marked in preop. He was taken to the operating room placed supine on the operating table a time-out was held and confirmed he was given general anesthesia and the extremity was prepped and draped in usual fashion. The site was marked for an incision and locally infiltrated with 1% lidocaine with epinephrine. The tourniquet was inflated to 250 mmHg after being exsanguinated an Esmarch. The the incision was made as marked and we dissection was continued to the the carpal metacarpal joint. The dissection commenced between the EPB in the APL no digital nerves were identified in this dissection. The joint capsule was opened. A great deal of no synovitis tissue was encountered and resected. The trapezium was highly sclerotic. This required division with a mallet and osteotome. Fragments were taken out piecemeal with Wise. The cavity was examined with the C-arm until all related osseous material was removed. The Arthrex internal brace was opened on the back table. Using the included C-wire drill and anchors the internal brace was fixed to the radial base of the 2nd metacarpal and the radial base of the 1st metacarpal. Adequate stability and function were maintained. The site was irrigated and part of the capsule repaired with 3-0 Vicryl suture. The skin was closed with running 4-0 Monocryl. A bulky bandage with thumb spica splint was applied allowing IP joint range of motion. 10 milliliters of 0.5% Marcaine were injected in the area of the surgery. The patient is discharged with a prescription for hydrocodone 5/325 12. Anesthesia: GETA Surgeon: Ted Knutson MD Metals Sales Representative: Natan Estimated blood loss (mL): 0 Tourniquet time (min): 88 Drains: No Packing: No Pathology: none sent Complications: No immediate complications Condition: stable Disposition: PACU
[2021-01-07] MEDS: fentaNYL CITRATE INJ (*CRX) 100 MCG/2 ML VIAL 25 MCG IV PUSH ×4 (16:10→16:23)
[2021-01-07] MEDS: HYDROmorphone HCL INJ (*CRX) 1 MG/ML SYR IV PUSH ×3 (16:27→16:52)
[2021-01-07] MEDS: oxyCODONE HCL (*CRX) 5 MG TAB IR PO (17:28)
== END 2021-01-07 18:00 | disposition home or self-care (01) ==
PROVIDERS: PCP Internal Medicine; Visit Provider Plastic Surgery
PROC: (CPT 25447; principal; 2021-01-07 12:45)
DX: M18.11 Unilateral primary osteoarthritis of first carpometacarpal joint, right hand (principal); J44.9 Chronic obstructive pulmonary disease, unspecified; E88.01 Alpha-1-antitrypsin deficiency; F31.76 Bipolar disorder, in full remission, most recent episode depressed; I87.1 Compression of vein; Z87.891 Personal history of nicotine dependence; F12.90 Cannabis use, unspecified, uncomplicated; Z79.51 Long term (current) use of inhaled steroids; Z79.02 Long term (current) use of antithrombotics/antiplatelets
CPT/HCPCS: 25447; 95810; A9270; C1713; J0690; J1100; J1170; J2250; J2405; J2704; J3010; J7120

== ENCOUNTER 2021-01-07 08:13 | Outpatient (CLI) | payer MEDICARE, MEDICAID, SELFPAY ==
--- NOTE | 2021-01-27 11:14 | WPDSLEEPSTUD ---
Sleep Study Date of Study: 01/07/21 Ordering Provider: Gloria Fried NP Interpreting Physician: Sherry Rawls MD Sleep Study Type: Polysomnogram Height: 1.93 m Weight: 112.945 kg Body Mass Index: 30.3 Neck Circumference (inches): 16.5 Antoine: 9 Reason for Sleep Study Poor quality sleep he complained of excessive daytime sleepiness; his psychiatrist suggested a sleep study to evaluate his insomnia. He is drinking a pot of coffee per day and monster drinks. This has been going on for months. Sleep History Zaheer Escalera is a 41-year-old man who has severe depression and Severe emphysema due to alpha 1 antitrypsin deficiency. He does use 4 L of oxygen with sleep and he has oxygen to use with exertion.. This sleep study occurred following a hand surgery. He had pain on the night of the study. His mother brought pain medicine to control the pain and he took hydrocodone 325 but did not take a sleep aid.. He has difficulty falling asleep and staying asleep. He has seen a psychiatrist about this. He occasionally awakens from sleep feeling short of breath. He rarely awakens at night with heartburn, belching or coughing. He constantly snores and occasionally this is loud enough that others complain about it. He constantly has trouble sleep with a cold. He occasionally wakes up gasping for breath at night. He constantly has breathing problems at night observed by others and he constantly sweats excessively at night. He constantly notices his heart pounding or beating irregularly night. He never falls asleep during the day, never falls asleep involuntarily and he never falls asleep while driving. He occasionally has loss of muscle tone was strong emotion. he does not have daytime difficulties due to excessive sleepiness. He occasionally feels paralyzed on waking or falling asleep and occasionally has vivid dreamlike scenes upon awakening or falling asleep. He does not feel afraid to go to sleep. He occasionally has nightmares and occasionally remembers his dreams. He constantly has racing thoughts, constantly feels sad, depressed and anxious. He constantly has muscular tension and constantly notices parts of his body jerking. He constantly kicks at night. He always has crawling and aching feelings in his legs and he constantly has leg pain during the night. He does not have morning jaw pain. He did grind his teeth when he had teeth currently he is edentulous. He constantly is bothered by pain during the day. He does not awaken at night due to pain. He occasionally wakes up feeling stiff in the morning with sore achy muscles and pain in the neck and spine. He feels dizzy, panicky, has sexual problems, insomnia, concentration difficulties, depression and palpitations. He has headaches. He goes to bed at 3:00 a.m. taking 4-6 hours to fall asleep typically waking 1 or 2 times for unclear reasons. When this happens he does gets up out of bed. He wakes in the morning at 6:00 a.m.. He estimates getting 2-3 hours of sleep. He is going through marital problems. His weekend schedule is the same. He does not take naps in the afternoon or evening. He is not refreshed after short nap. He is usually drowsy for 3 hours after he wakes. He feels better in the afternoon. Habits: Quit tobacco several years ago. Caffeine 2 cups a day. No alcohol or recreational drugs. [facility] Past Medical History Medical History Acute superior vena cava thrombosis Complications after Port-A-Cath infection, remains on Plavix long-term Lmrqh-7-juwcbkfcsgm deficiency Follows with Dr. Rawls. Asthma-COPD overlap syndrome Bipolar 1 disorder, depressed, full remission Chest pain Closed kidney laceration Endocarditis History of MRSA endocarditis 2016 Engages in vaping History of tobacco abuse Hydrocele Oxygen dependent Pre-diabetes Severe chronic obstructive pulmonary disease Shortness of Breath SV
[2021-01-27 11:43] VITALS: BMI 30.3
== END 2021-01-08 07:03 | disposition home or self-care (01) ==
LOC: ANHCSM 08:14
PROVIDERS: PCP Internal Medicine; Visit Provider Nurse Practitioner
DX: G47.31 Primary central sleep apnea (principal); Z72.821 Inadequate sleep hygiene; G47.10 Hypersomnia, unspecified
CPT/HCPCS: 95810

== ENCOUNTER 2021-01-30 11:58 | Emergency (ER) | payer MEDICARE, MEDICAID, SELFPAY ==
--- NOTE | ~2021-01-30 | XR_ITS ---
XR hand RT min 3V 01/30/2021 12:16 Indication: Status post fall. Right hand pain. Procedure: 3 views right hand Comparison: 12/08/2019 Findings: There is advanced osteoarthritis of the first carpometacarpal joint with multiple loose bod ies proximal to the joint space. Mild soft tissue swelling. No acute fracture or traumatic malalignme nt. There is suggestion of partial resection of the trapezium. Clinically correlate. Impression: 1: Possible partial resection of the trapezium with adjacent loose bodies. Correlate clinically. 2: No acute fracture is identified. Reviewed, dictated and finalized at location A. Impression: 1: Possible partial resection of the trapezium with adjacent loose bodies. Nick elate clinically. 2: No acute fracture is identified.
[2021-01-30 12:04] VITALS: BP 123/81; PULSE 92; RESP 24; TEMP 37.1; O2SAT 96
--- NOTE | 2021-01-30 12:45 | ED.UPPEXIN ---
HPI - Extremity Injury (Upper) General Chief Complaint: Extremity Injury, Upper Stated Complaint: rt hand pain History of Present Illness HPI narrative: This is a 41-year-old male comes in complaining of left hand pain. According to patient he states that he fell without his hand splint on that he needs after his surgery. Patient states he sees Dr. Knutson who completed his surgery. Patient informs me that he had an infection after the surgery and needed to be seen in the emergency room where he received antibiotics and pain medication. Patient also informed me that his daughter pulled his thumb and is causing severe pain Reviewed patient old chart I see where Dr. Knutson has seen the patient states that patient has some swelling postoperatively also in the notes is noted or patient has received hydrocodone from [address] Knutson has ordered patient tramadol on the and has informed patient that he would not order him any more narcotics. Related Data Home Medications Medication Instructions Recorded Confirmed duloxetine 30 mg capsule,delayed 60 mg PO HS 11/28/19 01/30/21 release quetiapine 200 mg tablet 300 mg PO HS tablet 11/28/19 01/30/21 trazodone 100 mg tablet 100 mg PO HS tablet 04/27/20 01/30/21 topiramate 150 mg PO HS 06/23/20 01/30/21 escitalopram oxalate [Lexapro] 20 mg PO DAILY 12/31/20 01/30/21 Allergies Allergy/AdvReac Type Severity Reaction Status Date / Time pollen extracts Allergy Sneezing Verified 01/14/21 10:36 iodine AdvReac Itching/leonel Verified 01/14/21 10:36 h Review of Systems Review of Systems: Narrative: CONSTITUTIONAL: Denies fever, chills, or sweats. EYES: Denies visual changes, redness, or discharge. ENT: Denies rhinorrhea, congestion, sore throat, or otalgia. CARDIOVASCULAR:Denies chest pain, palpitations, or edema. RESPIRATORY: Denies cough or dyspnea. GASTROINTESTINAL: Denies abdominal pain, nausea, vomiting, or diarrhea. GENITOURINARY: Denies dysuria or hematuria. SKIN:[Denies rash or itching. MUSCULOSKELETAL:Denies back pain, left thumb joint pain, or myalgia. NEUROLOGIC: Denies headache, numbness, or weakness. PSYCHIATRIC:Denies anxiety or depression PMFSH Past Medical History Medical History Acute superior vena cava thrombosis Complications after Port-A-Cath infection, remains on Plavix long-term Gghvh-7-fzdvmngfvop deficiency Follows with Dr. Rawls. Asthma-COPD overlap syndrome Bipolar 1 disorder, depressed, full remission Chest pain Closed kidney laceration Endocarditis History of MRSA endocarditis 2016 Engages in vaping History of tobacco abuse Hydrocele Oxygen dependent Pre-diabetes Severe chronic obstructive pulmonary disease Shortness of Breath SVC syndrome 2016 - patient had complications of a SVC thrombus after an SVC stent was placed for treatment of SVC syndrome after a Port-A-Cath infection Syncope Patient has issues with vasovagal syncope. Loop recorder placed August 2019. Surgical History Surgical History H/O vasectomy 2010 History of loop recorder Family History Family History Father Family history of diabetes mellitus in first degree relative Hypertension Mother Hypertension Grandparent Lung cancer Social History Social History Social History: Mr. Escalera lives currently in a camper with his and two of his three daughters. 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 He used to drink alcohol around 1 to 2 drinks per month but he reports he has not had any alcohol since Apr 2020. He reports he used to smoke 1 pack per day cigarettes x 20 years prior to his alpha-1 diagnosis and quit smoking 11 years ago. He uses marijuana in edible form around once per we
== END 2021-01-30 12:59 | disposition home or self-care (01) ==
PROVIDERS: Emergency Provider Nurse Practitioner Family; PCP Internal Medicine
DX: S66.911A Strain of unspecified muscle, fascia and tendon at wrist and hand level, right hand, initial encounter (principal); W19.XXXA Unspecified fall, initial encounter; M79.645 Pain in left finger(s); J44.9 Chronic obstructive pulmonary disease, unspecified; F17.200 Nicotine dependence, unspecified, uncomplicated; Z99.81 Dependence on supplemental oxygen; R73.03 Prediabetes; Z86.718 Personal history of other venous thrombosis and embolism; E88.01 Alpha-1-antitrypsin deficiency; Z98.52 Vasectomy status
CPT/HCPCS: 73130; 99213; G0463

== ENCOUNTER 2021-03-18 09:41 | Outpatient (CLI) | payer MEDICARE, MEDICAID, SELFPAY ==
--- NOTE | 2021-03-18 09:45 | ECHO_ITS ---
Patient Info Name: Zaheer Escalera Age: 41 years : 1980 Gender: Male Ht: 76 in Wt: 230 lbs BSA: 2.38 m2 HR: 67 bpm BP: 114 / 87 mmHg Heart Rhythm: Sinus Rhythm Technical Quality: Good Exam Date: 03/18/2021 10:14 AM Exam Location: [facility] Patient Status: Outpatient Admit Date: 03/18/2021 Staff Ordering Physician: Ricardo Martinez DO Student Assistant: Queenie Ivy RDCS Attending Provider: Ricardo Martinez DO Referring Physician: Juan CAMPBELL; Exam Type: CA echo doppler color flow Study Info Indications - SOB Complete two-dimensional, color flow and Doppler transthoracic echocardiogram is performed. Summary 1. Complete two-dimensional, color flow and Doppler transthoracic echocardiogram is performed. 2. Left ventricular chamber dimension is normal. 3. Left ventricular systolic function is normal, estimated at 55-60%. 4. There is no increased left ventricular wall thickness. 5. The left ventricular diastolic function is grade I diastolic dysfunction. 6. There is trace tricuspid valve regurgitation. 7. No pulmonary hypertension, estimated pulmonary arterial systolic pressure is 27 mmHg. 8. There is no aortic valve stenosis. 9. There is no mitral valve regurgitation. Left Ventricle Left ventricular chamber dimension is normal. Left ventricular systolic function is normal, estimated at 55-60%. There is no increased left ventricular wall thickness. The left ventricular diastolic function is grade I diastolic dysfunction. Right Ventricle Right ventricular chamber dimension is normal. Right ventricular systolic function is normal. Left Atria Left atrial chamber dimension is normal. Right Atria Right atrial chamber dimension is normal. Aortic Valve The aortic valve is not well visualized. There is no aortic valve stenosis. There is no aortic valve regurgitation. Pulmonic Valve The pulmonic valve is not well visualized. Mitral Valve The mitral valve has normal leaflets. There is no mitral valve regurgitation. Tricuspid Valve The tricuspid valve leaflets are normal. There is trace tricuspid valve regurgitation. No pulmonary hypertension, estimated pulmonary arterial systolic pressure is 27 mmHg. Pericardium/Pleural The pericardium appears normal. There is no pericardial effusion. Inferior Vena Cava Normal inferior vena cava with >50% collapse upon inspiration consistent with normal right atrial pressure, 5 mmHg. Aorta The aortic root size at the sinus of Valsalva is normal. Left Ventricular Outflow Tract Name Value Normal LVOT 2D LVOT Diameter 2.2 cm LVOT Doppler LVOT Peak Gradient 5 mmHg LVOT Mean Gradient 3 mmHg LVOT VTI 22 cm LVOT VTI/AV VTI Ratio 0.9 LVOT Stroke Volume 79 ml LVOT CO 17.8 l/min LVOT CI 7.5 l/min/m2 Pulmonic Valve Name
== END 2021-03-18 09:42 | disposition home or self-care (01) ==
PROVIDERS: PCP Internal Medicine; Visit Provider Internal Medicine
DX: R06.02 Shortness of breath (principal)
CPT/HCPCS: 93306

== ENCOUNTER 2021-03-31 09:36 | Outpatient (CLI) | payer MEDICARE, MEDICAID, SELFPAY ==
--- NOTE | 2021-03-31 11:00 | NEURO_ITS ---
PATIENT NUMBER: [id number] IMPESSION: # Complains of pain and weakness of both upper extremities. # Left moderate Carpal Tunnel Syndrome. # Bilateral ulnar neuropathy, right nonlocalizing but Left is localizing around the the elbow. # Needle exam not ordered. Nerve Conduction Studies Anti Sensory Summary Table Stim Site NR Peak (ms) P-T Amp (?V) Site1 Site2 Delta-P (ms) Dist (cm) Bryon (m/s) Left Median Anti Sensory (2-3nd Digit) Wrist 3.5 50.9 Wrist 2-3nd Digit 3.5 14.0 40 Wrist 3.7 10.8 Wrist 2-3nd Digit 3.5 14.0 40 Right Median Anti Sensory (2-3nd Digit) Wrist 3.0 45.2 Wrist 2-3nd Digit 3.0 14.0 47 Wrist 3.5 7.7 Wrist 2-3nd Digit 3.0 14.0 47 Left Radial Anti Sensory (Base 1st Digit) Wrist 2.2 40.4 Wrist Base 1st Digit 2.2 0.0 Right Radial Anti Sensory (Base 1st Digit) Wrist 2.5 5.5 Wrist Base 1st Digit 2.5 0.0 Left Ulnar Anti Sensory (5th Digit) Wrist 4.7 118.1 Wrist 5th Digit 4.7 14.0 30 Right Ulnar Anti Sensory (5th Digit) Wrist 2.8 56.3 Wrist 5th Digit 2.8 14.0 50 Motor Summary Table Stim Site NR Onset (ms) O-P Amp (mV) Site1 Site2 Delta-0 (ms) Dist (cm) Bryon (m/s) Left Median Motor (Abd Poll Brev) Wrist 4.9 1.0 Elbow Wrist 5.9 33.0 56 Elbow 10.8 1.2 Right Median Motor (Abd Poll Brev) Wrist 3.3 4.5 Elbow Wrist 5.8 32.0 55 Elbow 9.1 3.5 Left Ulnar Motor (Abd Dig Minimi) Wrist 2.6 6.5 A Elbow Wrist 7.2 33.0 46 A Elbow 9.8 5.1 B Elbow Wrist 5.1 27.0 53 B Elbow 7.7 5.9 Right Ulnar Motor (Abd Dig Minimi) Wrist 2.3 5.1 A Elbow Wrist 6.7 22.0 33 A Elbow 9.0 3.8 B Elbow B Elbow 0.0 0.0 B Elbow 6.3 2.9 F Wave Studies NR F-Lat (ms) L-R F-Lat (ms) Left Median (Mrkrs) (Abd Poll Brev) 35.86 4.68 Right Median (Mrkrs) (Abd Poll Brev) 31.18 4.68 Left Ulnar (Mrkrs) (Abd Dig Min) 34.06 1.38 Right Ulnar (Mrkrs) (Abd Dig Min) 32.68 1.38 MTDD
== END 2021-03-31 09:37 | disposition home or self-care (01) ==
PROVIDERS: PCP Internal Medicine; Visit Provider Plastic Surgery
DX: R20.2 Paresthesia of skin (principal); G56.02 Carpal tunnel syndrome, left upper limb; G56.23 Lesion of ulnar nerve, bilateral upper limbs
CPT/HCPCS: 95911

== ENCOUNTER 2021-04-01 11:36 | Outpatient (CLI) | payer MEDICARE, MEDICAID, SELFPAY ==
--- NOTE | ~2021-04-01 | XR_ITS ---
EXAMINATION: XR elbow RT min 3V DATE: 04/01/2021 13:49 INDICATION: Right elbow arthralgia TECHNIQUE: Anteroposterior, two oblique and lateral views of the right elbow were obtained. COMPARISON: None. FINDINGS: Alignment is normal. No fracture or joint effusion. Minimal osteoarthritis at the proximal radioulnar joint. Soft tissue swelling near the tip the olecranon with underlying small enthesopathic ossicles at the distal triceps tendon. Soft tissues are otherwise unremarkable. IMPRESSION: 1. Chronic distal triceps enthesopathy with a couple small enthesopathic ossicles. Reviewed, dictated and finalized at location B. IMPRESSION: 1. Chronic distal triceps enthesopathy with a couple small enthesopathic ossicl es.
--- NOTE | ~2021-04-01 | XR_ITS ---
EXAMINATION: XR wrist LT min 3V, XR hand LT 2V, XR hand RT 2V, XR wrist RT min 3V DATE: 04/01/2021 13:49 INDICATION: Unspecified arthralgias at the bilateral hands and wrists. TECHNIQUE: 1. Posteroanterior, ulnar deviation, oblique, and lateral views of the left wrist were obtained. 2. Dorsal palmar and lateral views of the left hand were obtained. 3. Posteroanterior, ulnar deviation, oblique, and lateral views of the right wrist were obtained. 4. Dorsal palmar and lateral views of the right hand were obtained. COMPARISON: 01/04/2021 and 01/30/2021 FINDINGS: Left hand and wrist: 2 mm ulnar minus variance. Otherwise normal alignment at the left hand and wrist. No fracture. Severe osteoarthritis at the first carpometacarpal joint with subarticular cystic change at the base of the first metacarpal and couple loose osteochondral bodies at the margins of the joint space. There is m oderate osteoarthritis at the triscaphe joint. Mild osteoarthritis at the distal radioulnar joint. No erosions to suggest inflammatory arthritis. Right hand and wrist: 2 mm ulnar minus variance. Severe osteoarthritic changes at the right first carpometacarpal joint wit h postoperative change of prior first carpal metacarpal suspension arthroplasty with resection of the trapezium. Couple tiny residual bone fragments at the resection bed. Moderate osteoarthritis at the triscaphe joint. Mild osteoarthritis at the distal radioulnar joint. No erosions to suggest an inflam matory arthritis. IMPRESSION: 1. Moderate osteoarthritis at the bilateral triscaphe joints and severe osteoarthritis at the bilater al first carpal metacarpal joints with change of prior first carpal metacarpal suspension arthroplast y with trapezium resection on the right. Reviewed, dictated and finalized at location B. IMPRESSION: 1. Moderate osteoarthritis at the bilateral triscaphe joints and severe osteoar thritis at the bilateral first carpal metacarpal joints with change of prior fi rst carpal metacarpal suspension arthroplasty with trapezium resection on the r ight. IMPRESSION: 1. Moderate osteoarthritis at the bilateral triscaphe joints and severe osteoar thritis at the bilateral first carpal metacarpal joints with change of prior fi rst carpal metacarpal suspension arthroplasty with trapezium resection on the r ight. IMPRESSION: 1. Moderate osteoarthritis at the bilateral triscaphe joints and severe osteoar thritis at the bilateral first carpal metacarpal joints with change of prior fi rst carpal metacarpal suspension arthroplasty with trapezium resection on the r ight.
--- NOTE | ~2021-04-01 | XR_ITS ---
EXAMINATION: XR elbow LT min 3V DATE: 04/01/2021 13:49 INDICATION: Chronic left elbow pain TECHNIQUE: Anteroposterior, two oblique and lateral views of the left elbow were obtained. COMPARISON: 01/04/2021 FINDINGS: Alignment is normal. No fracture or joint effusion. Mild osteoarthritis at the left elbow with mild n onuniform joint space narrowing and small marginal osteophytes most prominent at the proximal radioul chris joint. No erosions to suggest an inflammatory arthritis. Small enthesophyte and enthesopathic oss icle at the olecranon insertion of the distal triceps tendon. Additional small enthesophyte at the la teral epicondyle. Soft tissues are unremarkable. IMPRESSION: 1. Mild osteoarthritis at the left elbow. Reviewed, dictated and finalized at location B.
[2021-04-01 14:37] LABS: HIV 1/2 Ab P24 Ag Result Negative (Negative)
[2021-04-01 14:48] LABS: Hepatitis B Surface Antigen Negative (Negative)
[2021-04-01 15:01] LABS: Rheumatoid Factor 25.2 IU/ML (<12)
[2021-04-01 15:05] LABS: Hepatitis B Surface Anti Res Negative; Hepatitis C Virus Antibody Negative (Negative)
[2021-04-04 11:37] LABS: Anti Cyclic Citrullinated Pept <16 Units (<20)
[2021-04-04 18:23] LABS: Hepatitis B Core Ab Total Nonreactive (Nonreactive)
== END 2021-04-01 11:37 | disposition home or self-care (01) ==
PROVIDERS: PCP Internal Medicine
DX: M25.50 Pain in unspecified joint (principal); R76.8 Other specified abnormal immunological findings in serum; Z11.59 Encounter for screening for other viral diseases; M19.031 Primary osteoarthritis, right wrist; M19.032 Primary osteoarthritis, left wrist; M19.022 Primary osteoarthritis, left elbow
CPT/HCPCS: 36415; 73080; 73110; 73120; 86200; 86430; 86703; 86704; 86706; 86803; 87340; G0432

== ENCOUNTER → 2021-04-17 01:55 | Outpatient (CLI) | payer MEDICARE, MEDICAID, SELFPAY ==
[2021-04-17 19:28] LABS: SARS-CoV-2 RNA PCR Negative
== END ==
PROVIDERS: PCP Internal Medicine; Visit Provider Plastic Surgery
DX: Z01.812 Encounter for preprocedural laboratory examination (principal); Z20.822 Contact with and (suspected) exposure to COVID-19
CPT/HCPCS: C9803; U0003; U0005

== ENCOUNTER 2021-04-21 01:13 | Day surgery (SDC) | payer OTHER, SELFPAY ==
[2021-04-15 13:17] VITALS: BMI 29.0
--- NOTE | 2021-04-21 07:27 | WPDHPUPDATE1 ---
History and Physical Update Update Date/Time: 04/21/21 07:27 History and Physical has been reviewed, including an updated exam of the patient. There are NO changes in the patient's condition. Risks, benefits, and alternatives have been discussed and questions answered. Patient agrees to proceed with procedure.
[2021-04-21 08:08] VITALS: BP 121/77; PULSE 94; RESP 22; TEMP 36.4; O2SAT 99
--- NOTE | 2021-04-21 08:31 | SUR.PREOP ---
0755-PT AMBULATED WITH VOUNTEER TO PREOP WITHOUT OXYGEN IN PLACE. DYSPNEIC ON ARRIVAL, SEATED IN ROOM AND NASAL CANNULA PLACED AT 4L/MIN. STATE TOOK HOME O2 OFF AT 0600 AND HAS NOT HAD ON SINCE. 0800-IMPROVEMENT IN DYSPNEA, STATES IS NOW NORMAL BREATHING PATTERN, O2 CONTINUES.
[2021-04-21] MEDS: LACTATED RINGERS 1,000 ML 30 ML IV CONT (08:55)
--- NOTE | 2021-04-21 10:00 | WPDANESEPPF ---
Anes - Initial Pre Proc Eval Procedure: Operation Date: 04/21/21 10:00 Proposed Procedures p Right Ulnar Neuroplasty - Ted Knutson MD s Release Right Trigger Thumb, Injection of Betamethazone Right Ring Trigger Finger - Ted Knutson MD Date/Time: 04/21/21 10:00 Surgeon: Ted Knutson MD Pre Op Diagnosis: Rt Cubital Tunbel Syndrome Patient Data Age: 41 Gender: M Height: 1.93 m Weight: 102.5 kg Last Vital Signs Temp 97.6 F 04/21/21 08:08 Pulse 94 04/21/21 08:08 Resp 22 H 04/21/21 08:08 BP 121/77 04/21/21 08:08 Pulse Ox 99 04/21/21 08:08 Allergies Allergy/AdvReac Type Severity Reaction Status Date / Time Iodinated Contrast Media Allergy Intermediate ITCHING/CYNTHIA Verified 04/21/21 08:11 H pollen extracts AdvReac Mild Sneezing Verified 04/21/21 08:11 Home Medications Medication Instructions Recorded Confirmed Type clopidogrel 75 mg tablet 75 mg PO DAILY 03/09/21 04/21/21 History duloxetine 60 mg capsule,delayed 60 mg PO HS 03/09/21 04/21/21 History release trazodone 100 mg tablet 100 mg PO QHS 03/09/21 04/21/21 History albuterol sulfate [Proventil HFA] 2 puff INHALATION QID PRN 04/15/21 04/21/21 History budesonide-formoterol [Symbicort] 2 puff INHALATION Q12H 04/15/21 04/21/21 History ipratropium-albuterol 3 ml INHALATION Q4H PRN 04/15/21 04/21/21 History multivitamin [Daily Multiple] 1 tablet PO DAILY 04/15/21 04/21/21 History quetiapine 200 mg PO HS 04/15/21 04/21/21 History topiramate 150 mg PO HS 04/15/21 04/21/21 History Patient hx anesthesia problems: none Family hx anesthesia problems: none PMFSH Past Medical History Medical History 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 Rawls. Arthritis of right hand Asthma-COPD overlap syndrome Bipolar 1 disorder, depressed, full remission Chest pain Closed kidney laceration Endocarditis History of MRSA endocarditis 2016 Engages in vaping History of tobacco abuse Hydrocele Oxygen dependent Pre-diabetes Severe chronic obstructive pulmonary disease Shortness of Breath SVC syndrome 2016 - patient had complications of a SVC thrombus after an SVC stent was placed for treatment of SVC syndrome after a Port-A-Cath infection Syncope Patient has issues with vasovagal syncope. Loop recorder placed August 2019. Surgical History Surgical History H/O vasectomy 2010 History of loop recorder Family History Family History Father Family history of diabetes mellitus in first degree relative Hypertension Mother Hypertension Grandparent Lung cancer Social History Social History Social History: Mr. Escalera lives currently in a camper with his and two of his three daughters. 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 He used to drink alcohol around 1 to 2 drinks per month but he reports he has not had any alcohol since Apr 2020. He reports he used to smoke 1 pack per day cigarettes x 20 years prior to his alpha-1 diagnosis and quit smoking 11 years ago. He uses marijuana in edible form around once per week. PCP: Dr Imelda VARGAS: Virgen, his . Code: Full code status Smoking packs per day: 1 Smoking cigarettes per day: 20.0 Years smoked: 20 Smoking pack-years: 20.00 Smoking status: Former smoker Tobacco type: cigarettes and e-cigarettes/vaping Smoking end date: 08/07/06 Alcohol intake: former Drinks per week: 1 Alcohol use details: QUIT OVER A YEAR AGO - VERY LITTLE BEFORE THAT Substance use: current Substance use type: marijuana Other substance usage details: GUMMIES - 12/31/20 Last use: 06/13/20
[2021-04-21] MEDS: LIDO 1%/EPINEPHRINE 1:100,000 50 ML VIAL INFILTRATE (10:42)
[2021-04-21] MEDS: DEXAMETHASONE SOD PHOS INJ 4 MG/ML VIAL XX (10:44)
--- NOTE | 2021-04-21 11:18 | PM.OP ---
Procedure Note - Brief Procedure Note - Brief Date of procedure: 04/21/21 Pre-op diagnosis: Rt Cubital Tunbel Syndrome R Cubitial tunnel syndrome, R trigger thumb, Right ring finger stenosing tenosynovitis. Procedure performed: R Ulnar Neuroplasty at the elbow, Right Trigger Thumb Release, Inject Right Ring Stenosing Synovitis Anesthesia: MAC Surgeon: Ted Knutson MD Rare/Endangered Species Specialist: Gemma Oakley Estimated blood loss (mL): 2 Tourniquet time (min): 42 Drains: No Packing: No Pathology: none sent Complications: None Condition: stable Disposition: same day
[2021-04-21 11:23] VITALS: BP 109/72; PULSE 77; RESP 16; O2SAT 96
--- NOTE | 2021-04-21 11:36 | W.PM.PROC2 ---
Procedure Note - Detailed Date of Procedure 04/21/21 Pre-op Diagnosis Right cubital tunnel syndrome. Right trigger thumb. Right ring finger stenosing tenosynovitis Post-op Diagnosis same Procedure Performed Right ulnar neuroplasty at the elbow. Right trigger thumb release. Injection of dexamethasone 2.4 mg to the right ring A1 magda Surgeon Ted Knutson MD Agronomy Manager Anila Oakley Anesthesia MAC Description of Procedure The 3 sites were marked on the patient as he waited in the holding area. He was taken to the operating room and placed supine on the operating table. Time-out was held and confirmed. He was given IV sedation. The right upper extremity was prepped and draped in usual fashion. The sites were remarked for surgery and the extremity exsanguinated. The tourniquet was inflated to 250 mmHg. The incision was made 1st at the base of the right thumb. The transverse incision was made the blunt dissection revealed the flexor tendon sheath. Nerves were seen and retracted. The A1 magda was incised and released with scissor tips. Patient was not cooperative at that time but we were able to pull the tendon up out of the wound and confirmed that it had no gross deformity. The wound was closed with interrupted 5 0 nylon sutures. The elbow was flexed and the incision was made for the cubital tunnel release. The dissection was carried through the subcutaneous tissue to the interspace between the medial epicondyle and olecranon. Triceps muscle was identified and the nerve was noted to be tightly opposed to that proximal to the medial epicondyle. The nerve was exposed in this area. The Emery's ligament was released. The nerve did not appear to sublux significantly and we went ahead to cauterize bleeding points and closed the wound with intradermal 3-0 Monocryl sutures and a running into dermal 3-0 Monocryl closure. The betamethasone was drawn up and 0.6 milliliter was given to the ring finger A1 magda site. This was equal to 2.4 mg of dexamethasone Appropriate dressings were applied the tourniquet was released and he is discharged with instructions in wound care and follow-up he has a prescription for hydrocodone 5/325 10. Estimated Blood Loss 5 Tourniquet Time 52 Drains No Packing No Pathology none sent Complications No immediate complications Condition stable Disposition same day
[2021-04-21 11:53] VITALS: BP 121/83; PULSE 72; RESP 16; O2SAT 98
[2021-04-21 12:23] VITALS: BP 129/88; PULSE 74; RESP 16; O2SAT 98
[2021-04-21] MEDS: oxyCODONE HCL (*CRX) 5 MG TAB IR PO (12:28)
== END 2021-04-21 12:49 | disposition home or self-care (01) ==
PROVIDERS: PCP Internal Medicine; Visit Provider Plastic Surgery
PROC: (CPT 26055; principal; 2021-04-21 10:00)
PROC: (CPT 26055; 2021-04-21 10:00)
DX: G56.21 Lesion of ulnar nerve, right upper limb (principal); M65.311 Trigger thumb, right thumb; M65.841 Other synovitis and tenosynovitis, right hand; E88.01 Alpha-1-antitrypsin deficiency; J44.9 Chronic obstructive pulmonary disease, unspecified; F31.76 Bipolar disorder, in full remission, most recent episode depressed; R73.03 Prediabetes; Z99.81 Dependence on supplemental oxygen; R55 Syncope and collapse; Z87.891 Personal history of nicotine dependence; F12.90 Cannabis use, unspecified, uncomplicated; Z79.02 Long term (current) use of antithrombotics/antiplatelets; Z79.51 Long term (current) use of inhaled steroids; Z86.718 Personal history of other venous thrombosis and embolism
CPT/HCPCS: 26055; 64718; 20550; A9270; C9803; J1100; J2250; J2704; J3010; J7120; U0003; U0005

== ENCOUNTER 2021-05-01 12:47 | Outpatient (CLI) | payer MEDICARE, SELFPAY ==
[2021-05-01 13:05] LABS: Basophils Percent Auto 0.6 % (0.2-1.2); Eosinophils Absolute Auto 0.4 K/mm3 (0-0.3); Eosinophils Percent Auto 5.5 % (0-4.4); Hematocrit 45.9 % (42.0-52.0); Hemoglobin 15.2 g/dL (14.0-18.0); Immature Granulocyte Absolute 0.02 K/mm3 (0.00-0.031); Immature Granulocyte Percent A 0.3 % (0-0.5); Lymphocytes Absolute Auto 1.71 K/mm3 (0.9-3.2); Mean Corpuscular HGB Conc 33.1 g/dl (32-36); Mean Corpuscular Hemoglobin 31.5 pg (26-34); Mean Platelet Volume 8.9 fl (7.4-10.4); Monocytes Absolute Auto 0.4 K/mm3 (0.1-0.6); Monocytes Percent Auto 5.7 % (2.6-8.5); Neutrophils Absolute Auto 3.9 K/mm3 (1.3-6.7); Neutrophils Percent Auto 60.9 % (45.5-73.1); Platelet Count Result 239 k/mm3 (150-375); Red Blood Count 4.83 M/mm3 (4.6-6.20); Red Cell Distribution Width 12.2 % (11.5-14.5); White Blood Count 6.3 K/mm3 (4.5-10.0)
[2021-05-01 13:18] LABS: Add Urine Microscopic? NO; Appearance Urine Clear (Clear); Bilirubin Urine Negative (Negative); Blood Urine Negative (Negative); Color Urine Yellow (Yellow); Glucose Urine UA Negative (Negative); Ketones Urine Negative (Negative); Leukocyte Esterase Ur Negative LEU/UL (NEGATIVE); Nitrate Urine Negative (Negative); Protein Urine Negative (Negative); Specific Grav Ur 1.014 (1.001-1.035); Urobilinogen Urine Negative mg/dL (<2.0)
[2021-05-01 13:22] LABS: Anion Gap 6 mmol/L (8-16); Blood Urea Nitrogen 13 mg/dL (9-20); Calcium 8.8 mg/dL (8.4-10.2); Carbon Dioxide 27 mmol/L (22-30); Chloride 107 mmol/L (98-107); Estimated Glomerular Filt Rate > 60; Glucose 181 mg/dL (65-110); Potassium 4.1 mmol/L (3.4-5.0); Sodium 140 mmol/L (137-145)
== END 2021-05-01 12:48 | disposition home or self-care (01) ==
PROVIDERS: PCP Internal Medicine
DX: R55 Syncope and collapse (principal); Z01.818 Encounter for other preprocedural examination
CPT/HCPCS: 36415; 80048; 81003; 85025

== ENCOUNTER → 2021-05-17 03:22 | Outpatient (CLI) | payer MEDICARE, MEDICAID, SELFPAY ==
[2021-05-17 20:20] LABS: SARS-CoV-2 RNA PCR Negative
== END ==
PROVIDERS: PCP Internal Medicine; Visit Provider Plastic Surgery
DX: Z01.812 Encounter for preprocedural laboratory examination (principal); Z20.822 Contact with and (suspected) exposure to COVID-19
CPT/HCPCS: C9803; U0003; U0005

== ENCOUNTER 2021-05-20 01:16 | Day surgery (SDC) | payer MEDICARE, MEDICAID, SELFPAY ==
[2021-05-12 11:55] VITALS: BMI 29.2
--- NOTE | 2021-05-20 06:43 | WPDHPUPDATE1 ---
History and Physical Update Update Date/Time: 05/20/21 06:43 History and Physical has been reviewed, including an updated exam of the patient. There are NO changes in the patient's condition. Risks, benefits, and alternatives have been discussed and questions answered. Patient agrees to proceed with procedure.
[2021-05-20] MEDS: LACTATED RINGERS 1,000 ML 30 ML IV CONT (10:30)
[2021-05-20 10:32] VITALS: BP 143/87; PULSE 87; RESP 16; TEMP 37.4; O2SAT 100
--- NOTE | 2021-05-20 10:33 | WPDANESEPPF ---
Anes - Initial Pre Proc Eval Procedure: Operation Date: 05/20/21 12:30 Proposed Procedures p Right Open Carpal Tunnel Release - Ted Knutson MD Date/Time: 05/20/21 10:33 Surgeon: Ted Knutson MD Pre Op Diagnosis: right carpal tunnel syndrome Patient Data Age: 41 Gender: M Height: 1.93 m Weight: 108.8 kg Allergies Allergy/AdvReac Type Severity Reaction Status Date / Time Iodinated Contrast Media Allergy Intermediate ITCHING/CYNTHIA Verified 05/18/21 10:26 H pollen extracts AdvReac Mild Sneezing Verified 05/18/21 10:26 Home Medications Medication Instructions Recorded Confirmed Type clopidogrel 75 mg tablet 75 mg PO DAILY 03/09/21 05/20/21 History duloxetine 60 mg capsule,delayed 60 mg PO HS 03/09/21 05/20/21 History release trazodone 100 mg tablet 100 mg PO QHS 03/09/21 05/20/21 History multivitamin 1 tablet PO DAILY 04/15/21 05/20/21 History quetiapine 200 mg PO HS 04/15/21 05/20/21 History topiramate 150 mg PO HS 04/15/21 05/20/21 History albuterol sulfate 90 mcg/actuation 2 puff INHALATION QID PRN #8.5 g 05/07/21 05/20/21 Rx aerosol inhaler alpha-1 proteinase inhib.(hum) 500 mg IV WEEKLY 05/12/21 05/20/21 History [Aralast] albuterol sulfate 1.25 mg/3 mL 1.25 mg INHALATION Q4-6H PRN 30 05/18/21 05/18/21 Rx solution for nebulization Days #90 ml fluticasone fur. 100 mcg-umeclid 1 inh INHALATION DAILY 30 Days #60 05/18/21 05/18/21 Rx 62.5 mcg-vilant 25 mcg ea inhalat.powder Patient hx anesthesia problems: none Family hx anesthesia problems: none Results Review: All pre-operative results and documents have been reviewed as part of the pre-operative evaluation. 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 Rawls. Arthritis of right hand Asthma-COPD overlap syndrome Bipolar 1 disorder, depressed, full remission Chest pain Closed kidney laceration Endocarditis History of MRSA endocarditis 2016 Engages in vaping History of tobacco abuse Hydrocele Infection due to Port-A-Cath Oxygen dependent Pre-diabetes Severe chronic obstructive pulmonary disease Shortness of Breath SVC syndrome 2016 - patient had complications of a SVC thrombus after an SVC stent was placed for treatment of SVC syndrome after a Port-A-Cath infection Syncope Patient has issues with vasovagal syncope. Loop recorder placed August 2019. Surgical History Surgical History H/O vasectomy 2010 History of loop recorder Family History Family History Father Family history of diabetes mellitus in first degree relative Hypertension Mother Hypertension Grandparent Lung cancer Social History Social History Social History: Mr. Escalera lives currently in a camper with his and two of his three daughters. 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 He used to drink alcohol around 1 to 2 drinks per month but he reports he has not had any alcohol since Apr 2020. He reports he used to smoke 1 pack per day cigarettes x 20 years prior to his alpha-1 diagnosis and quit smoking 11 years ago. He uses marijuana in edible form around once per week. PCP: Dr Imelda VARGAS: Virgen, his . Code: Full code status Smoking packs per day: 1 Smoking cigarettes per day: 20.0 Years smoked: 20 Smoking pack-years: 20.00 Smoking status: Former smoker (quit with diagnosis of alpha-1 deficiency 12 years ago) Tobacco type: cigarettes Smoking end date: 08/07/06 Alcohol intake: former Drinks per week: 1 Alcohol use details: QUIT OVER A YEAR AGO - VERY LITTLE BEFORE THAT Substance use:
[2021-05-20] MEDS: LIDO 1%/EPINEPHRINE 1:100,000 50 ML VIAL INFILTRATE (12:16)
[2021-05-20 12:30] VITALS: BP 110/79; PULSE 91; RESP 14; O2SAT 98
--- NOTE | 2021-05-20 12:34 | W.PM.PROC2 ---
Procedure Note - Detailed Date of Procedure 05/20/21 Pre-op Diagnosis right carpal tunnel syndrome Post-op Diagnosis same Procedure Performed Right open carpal tunnel release Surgeon Ted Knutson MD Manager Environmental Health Gemma Anesthesia MAC Description of Procedure The left volar wrist was marked in the holding area the patient was taken to the operating room placed supine on the operating table. A time-out was held and confirmed in the extremity was prepped and draped in usual fashion. The patient was given IV sedation. The site was remarked in the area locally infiltrated with 1% lidocaine with epinephrine. The tourniquet was inflated with the use of Javier wrap to 250 mmHg. The incision was made as marked in the palm and dissection was carried bluntly through the subcutaneous tissue to the palmar aponeurosis. This and the transverse carpal ligament was incised with a 15 blade. Under 3 point retraction the ligament was divided distally and proximally to completely release. There was no unusual anatomy noted. The skin was closed with interrupted 4-0 nylon suture. The usual bandage was applied the tourniquet was released. He is discharge instructions wound care and follow-up in as a prescription for hydrocodone 5/325 number 6 Estimated Blood Loss 0 Tourniquet Time 11 Drains No Packing No Pathology none sent Complications No immediate complications Condition stable Disposition same day
[2021-05-20 13:00] VITALS: BP 108/75; PULSE 93; RESP 16
== END 2021-05-20 13:25 | disposition home or self-care (01) ==
PROVIDERS: PCP Internal Medicine; Visit Provider Plastic Surgery
PROC: (CPT 64721; principal; 2021-05-20 12:30)
DX: G56.01 Carpal tunnel syndrome, right upper limb (principal); E88.01 Alpha-1-antitrypsin deficiency; J44.9 Chronic obstructive pulmonary disease, unspecified; F31.76 Bipolar disorder, in full remission, most recent episode depressed; R73.03 Prediabetes; Z99.81 Dependence on supplemental oxygen; Z87.891 Personal history of nicotine dependence; F12.90 Cannabis use, unspecified, uncomplicated; E66.9 Obesity, unspecified; Z68.29 Body mass index [BMI] 29.0-29.9, adult; Z79.02 Long term (current) use of antithrombotics/antiplatelets; Z79.51 Long term (current) use of inhaled steroids
CPT/HCPCS: 64721; A9270; J2704; J3010; J7120

== ENCOUNTER → 2021-06-01 01:36 | Outpatient (CLI) | payer MEDICARE, MEDICAID, SELFPAY ==
[2021-06-01 18:23] LABS: SARS-CoV-2 RNA PCR Negative
== END ==
PROVIDERS: PCP Internal Medicine; Visit Provider Internal Medicine Critical Care Medicine
DX: R68.89 Other general symptoms and signs (principal); Z20.822 Contact with and (suspected) exposure to COVID-19
CPT/HCPCS: C9803; U0003; U0005

== ENCOUNTER 2021-06-04 08:15 | Outpatient (CLI) | payer MEDICARE, MEDICAID, SELFPAY ==
--- NOTE | 2021-06-07 09:52 | WPDSLEEPSTUD ---
Sleep Study Date of Study: 06/04/21 Ordering Provider: Sherry Rawls MD Interpreting Physician: Sherry Rawls MD Sleep Study Type: BiPAP Titration Height: 1.93 m Weight: 108.912 kg Body Mass Index: 29.2 Neck Circumference (inches): 16.5 [place]: 9 Reason for Sleep Study * 01/07/2021 basic nocturnal polysomnogram with mild central sleep apnea, AHI 8.5, central AHI 7.7, prolonged severe desaturation 80% and 82% of the study spent below 88%. He presents for PAP titration. * 03/18/2021 echo showed LVEF 55-60%. Sleep History Zaheer Escalera is a 41-year-old man who has severe depression and severe emphysema due to alpha 1 antitrypsin deficiency. He has been using 4 L of oxygen with sleep and he has oxygen to use with exertion. The initial sleep study occurred the night following a hand surgery. He had post-op pain on the night of the study, and his mother brought pain medicine to control the pain. He took hydrocodone 325 mg but did not take a sleep aid. He had mainly central apneas on the first study in January with significant hypoxemia. He has difficulty falling asleep and staying asleep. He has seen a psychiatrist about this. He occasionally awakens from sleep feeling short of breath. He rarely awakens at night with heartburn, belching or coughing. He constantly snores and occasionally this is loud enough that others complain about it. He constantly has trouble sleep with a cold. He occasionally wakes up gasping for breath at night. He constantly has breathing problems at night observed by others and he constantly sweats excessively at night. He constantly notices his heart pounding or beating irregularly night. He never falls asleep during the day, never falls asleep involuntarily and he never falls asleep while driving. He occasionally has loss of muscle tone was strong emotion. he does not have daytime difficulties due to excessive sleepiness. He occasionally feels paralyzed on waking or falling asleep and occasionally has vivid dreamlike scenes upon awakening or falling asleep. He does not feel afraid to go to sleep. He occasionally has nightmares and occasionally remembers his dreams. He constantly has racing thoughts, constantly feels sad, depressed and anxious. He constantly has muscular tension and constantly notices parts of his body jerking. He constantly kicks at night. He always has crawling and aching feelings in his legs and he constantly has leg pain during the night. He does not have morning jaw pain. He did grind his teeth when he had teeth, now is edentulous. He constantly is bothered by pain during the day. He does not awaken at night due to pain. He occasionally wakes up feeling stiff in the morning with sore achy muscles and pain in the neck and spine. He feels dizzy, panicky, has sexual problems, insomnia, concentration difficulties, depression and palpitations. He has headaches. He goes to bed at 3:00 a.m. taking 4-6 hours to fall asleep typically waking 1 or 2 times for unclear reasons. When this happens, he does gets up out of bed. He wakes in the morning at 6:00 a.m.. He estimates getting 2-3 hours of sleep. He is going through marital problems. His weekend schedule is the same. He does not take naps in the afternoon or evening. He is not refreshed after short nap. He is usually drowsy for 3 hours after he wakes. He feels better in the afternoon. Habits: Quit tobacco several years ago. Caffeine 2 cups a day. No alcohol or recreational drugs. [facility] Past Medical History Medical History (Updated 06/07/21 @ 10:26 by Sherry Rawls MD) Acute superior vena cava thrombosis Complications after Port-A-Cath infection, remains on Plavix long-term Nxtgg-0-tzmqkancobg deficiency Follows with Dr. Rawls. Arthritis of right hand Asthma-COPD overlap syndrome Bipolar 1 disorder, depressed, full remission Chest pain Closed kidney laceration Endocarditis History of MRSA endocarditis 2016 [place] in [place]
[2021-06-07 10:35] VITALS: BMI 29.2
== END 2021-06-05 08:27 | disposition home or self-care (01) ==
LOC: ANHCSM 08:16
PROVIDERS: PCP Internal Medicine; Visit Provider Internal Medicine Critical Care Medicine
DX: G47.31 Primary central sleep apnea (principal)
CPT/HCPCS: 95811

== ENCOUNTER 2021-08-04 14:41 | Outpatient (CLI) | payer OTHER, MEDICARE, MEDICAID, SELFPAY ==
--- NOTE | ~2021-08-04 | CT_ITS ---
EXAMINATION: CT lumbar spine wo con DATE: 08/04/2021 14:58 INDICATION: Low back pain. TECHNIQUE: Computed tomography (CT) of the lumbar spine was performed without intravenous contrast. A utomated exposure control and iterative reconstruction technique were employed. The dose-length produ ct was 1503.42 mGy-cm. COMPARISON: CT lumbar spine 01/04/2021 FINDINGS: Bone alignment is normal. There is a nondisplaced fracture of the posterior elements of the coccyx. Vertebral body heights are normal. There is mildly decreased disc height at L2-L3. The follo wing disc levels are specifically discussed: L1-L2: The disc does not extend beyond the endplate margin. There is mild bilateral facet joint osteo arthritis. There is no neural foraminal stenosis. There is no central canal stenosis. L2-L3: The disc is bulging. There is mild bilateral facet joint osteoarthritis. There is mild right n eural foraminal stenosis. There is mild central canal stenosis. L3-L4: The disc does not extend beyond the endplate margin. There is mild bilateral facet joint osteo arthritis. There is no neural foraminal stenosis. There is no central canal stenosis. L4-L5: The disc is bulging. There is mild bilateral facet joint osteoarthritis. There is mild bilater al neural foraminal stenosis. There is mild central canal stenosis. L5-S1: The disc is bulging. There is mild bilateral facet joint osteoarthritis. There is mild bilater al neural foraminal stenosis. There is mild central canal stenosis. IMPRESSION: 1. Fracture of the coccyx. 2. Mild lumbar spondylosis, stable from 01/04/2021. Reviewed, dictated and finalized at location D. TRIMMER
== END 2021-08-04 14:42 | disposition home or self-care (01) ==
LOC: ANHIMG 14:42
PROVIDERS: PCP Internal Medicine; Visit Provider Internal Medicine
DX: M47.896 Other spondylosis, lumbar region (principal); S32.2XXA Fracture of coccyx, initial encounter for closed fracture; X58.XXXA Exposure to other specified factors, initial encounter
CPT/HCPCS: 72131

== ENCOUNTER 2023-08-02 19:23 | Emergency (ER) | payer MEDICARE, MEDICAID, SELFPAY ==
--- NOTE | 2023-08-02 19:25 | ED.GENADULT ---
HPI - General Adult General Chief complaint: Upper Respiratory Infection Stated complaint: cough/congestion/sob Source: patient, RN notes reviewed and old records reviewed Mode of arrival: ambulatory Limitations: no limitations History of Present Illness HPI narrative: 43-year-old male patient presents to [facility] with complaints cough, congestion, shortness of breath, wheezing that started the end of June. Patient states was seen in emergency room and diagnosed with influenza A, And given Tamiflu patient states never improved. Patient return to the ER in July 07 and was again told it was influenza. Patient states symptoms have never went away. Patient on home O2, nebulizers, multiple inhalers. MD complaint: Cough shortness of breath Onset (ago): week(s) (4) Related Data Home Medications Medication Instructions Recorded Confirmed trazodone 100 mg tablet 100 mg PO QHS 03/09/21 08/02/23 multivitamin 1 tablet PO DAILY 04/15/21 08/02/23 topiramate 200 mg tablet (Topamax) 200 mg PO DAILY 07/27/21 08/02/23 hydroxychloroquine 200 mg tablet 200 mg PO DAILY 10/05/21 08/02/23 rizatriptan 10 mg tablet See Rx Instructions PO .COMPLEX 10/05/21 08/02/23 alpha-1 proteinase inhib.(hum) 500 120 mg IV .biweekly 07/07/22 08/02/23 mg intravenous solution Allergies Allergy/AdvReac Type Severity Reaction Status Date / Time pollen extracts AdvReac Mild Sneezing Verified 08/02/23 19:38 Review of Systems Constitutional: Constitutional: Reports no additional constitutional complaints, Denies body ache(s), Denies chills, Denies fatigue, Denies fever(s) and Denies headache(s) Eyes: Eyes: Reports no additional eye complaints and Denies blurry vision ENT: Reports system reviewed and no additional complaints, except as documented, Denies vertigo, Denies dizziness, Denies ear discharge, Denies otalgia, Denies facial pain, Denies headache(s), Reports nasal congestion, Denies nasal discharge, Denies sinus pain, Denies sinus pressure and Denies sore throat Cardiovascular: Cardiovascular: Reports no additional cardiovascular complaints, Denies chest pain, Denies chest pain at rest, Denies rapid heart rate and Denies dyspnea Respiratory: Respiratory: Reports no additional respiratory complaints, Reports chest congestion, Reports cough, Denies pain on inspiration, Reports pain with cough and Reports dyspnea Gastrointestinal: Gastrointestinal: Denies abdominal pain, Denies diarrhea, Denies nausea and Denies vomiting Integumentary/Breasts: Skin/Breast: Denies rash Neurologic: Reports system reviewed and no additional complaints, except as documented, Denies vertigo, Denies dizziness and Denies headache(s) Endocrine: Endocrine: Denies fatigue [facility] Past Medical History Medical History Acute superior vena cava thrombosis Complications after Port-A-Cath infection, remains on Plavix long-term Eiijg-0-fhudjjwuuqx deficiency Follows with Dr. Rawls. Arthritis of right hand Asthma-COPD overlap syndrome Bipolar 1 disorder, depressed, full remission Chest pain Closed kidney laceration Endocarditis History of MRSA endocarditis 2015 Engages in vaping History of tobacco abuse Hydrocele Infection due to Port-A-Cath Oxygen dependent Pre-diabetes Severe chronic obstructive pulmonary disease Shortness of Breath SVC syndrome 2016 - patient had complications of a SVC thrombus after an SVC stent was placed for treatment of SVC syndrome after a Port-A-Cath infection Syncope Patient has issues with vasovagal syncope. Loop recorder placed August 2019. Surgical History Surgical History H/O vasectomy 2010 History of loop recorder Family History Family History Father Family history of diabetes mellitus in first degree relative Hypertension Mother Hypertension Grandparent
[2023-08-02 19:32] VITALS: BP 139/75; PULSE 111; RESP 18; TEMP 37.4; O2SAT 95
== END 2023-08-02 19:47 | disposition home or self-care (01) ==
PROVIDERS: Emergency Provider Registered Nurse
DX: J06.9 Acute upper respiratory infection, unspecified (principal); J45.51 Severe persistent asthma with (acute) exacerbation; Z87.891 Personal history of nicotine dependence; Z86.718 Personal history of other venous thrombosis and embolism; M19.041 Primary osteoarthritis, right hand; Z99.81 Dependence on supplemental oxygen; R73.03 Prediabetes; J44.9 Chronic obstructive pulmonary disease, unspecified; Z79.01 Long term (current) use of anticoagulants
CPT/HCPCS: 99213; G0463

== ENCOUNTER 2024-08-16 19:08 | Emergency (ER) | payer MEDICARE, MEDICAID, SELFPAY ==
[2024-08-16 19:11] VITALS: BP 138/76; PULSE 124; RESP 20; O2SAT 89
[2024-08-16] MEDS: IPRATROPIUM 0.5 MG/ALBUTEROL SULFATE 2.5 MG AMPUL.NEB 3 ML INHALATION (19:26)
--- NOTE | 2024-08-16 19:33 | ED.SOB ---
HPI - SOB/Dyspnea General Chief Complaint: Shortness of Breath/Dyspnea Stated Complaint: Shortness of Breath Time Seen by Provider: 08/16/24 19:09 Source: patient and RN notes reviewed Mode of arrival: ambulatory Limitations: no limitations History of Present Illness HPI Narrative: Patient presents today complaining of several day history of cough, shortness of breath, severe headache, nasal congestion, rhinorrhea, lightheadedness. Patient for 1 hour to get to the clinic today. States he just finished a course of antibiotics 2 weeks ago for respiratory infection and states this is the 4th round of antibiotics recently. States he typically wears 4 L of oxygen at home. History of alpha-1 antitrypsin deficiency for which he receives plasma infusions. History of COPD Related Data Home Medications ?Medication ?Instructions ?Recorded ?Confirmed ?Last Taken ?Type trazodone 100 mg tablet 100 mg PO QHS 03/09/21 08/02/23 05/19/21 History multivitamin 1 tablet PO DAILY 04/15/21 08/02/23 05/16/21 History topiramate 200 mg tablet (Topamax) 200 mg PO DAILY 07/27/21 08/02/23 Unknown History hydroxychloroquine 200 mg tablet 200 mg PO DAILY 10/05/21 08/02/23 Unknown History rizatriptan 10 mg tablet See Rx Instructions PO .COMPLEX 10/05/21 08/02/23 Unknown History alpha-1 proteinase inhib.(hum) 500 120 mg IV .biweekly 07/07/22 08/02/23 Unknown History mg intravenous solution budesonide 0.5 mg/2 mL suspension mg 08/16/24 Unknown History for nebulization fluticasone propionate 50 intranasal 08/16/24 Unknown History mcg/actuation nasal spray,suspension glycopyrrolate 9 mcg-formoterol inhalation 08/16/24 Unknown History 4.8 mcg HFA aerosol inhaler (Bevespi Aerosphere) ipratropium bromide 17 inhalation 08/16/24 Unknown History mcg/actuation HFA aerosol inhaler (Atrovent HFA) montelukast 10 mg tablet mg 08/16/24 Unknown History Allergies Allergy/AdvReac Type Severity Reaction Status Date / Time pollen extracts AdvReac Mild Sneezing Verified 08/16/24 19:36 Review of Systems Review of Systems: CONSTITUTIONAL: Denies body aches, fever, chills, or sweats. EYES: Denies visual changes, redness, or discharge. ENT: Denies sore throat, or otalgia.+ rhinorrhea, congestion CARDIOVASCULAR: Denies chest pain, palpitations, or edema. RESPIRATORY: + cough, shortness of breath GASTROINTESTINAL: Denies abdominal pain, nausea, vomiting, or diarrhea. GENITOURINARY: Denies dysuria or hematuria. SKIN: Denies rash, itching, or wounds. MUSCULOSKELETAL: Denies back pain, joint pain, or myalgia. NEUROLOGIC: Denies numbness, tingling, or weakness.+ headache, lightheadedness PSYCH: Denies depression or anxiety. 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 Loop recorder placed August 2019. 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 Escalera is getting a divorce, is disabled, has three daughters. 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 He used to drink alcohol around 1 to 2 drinks per month but he reports he has not had any alcohol since Apr 2020. He reports he used to smoke 1 pack per day cigarettes x 20 years prior to his alpha-1 diagnosis and quit smoking 11 years ago. He uses marijuana in edible form around once per week. PCP: Dr Imelda VARGAS: Virgen, his ex-. Code: Full code status Smoking packs per day: 1 Smoking cigarettes per day: 20.0 Years smoked: 20 Smoking pack-years: 20.00 Smoking status: Former smoker Tobacco type: cigarettes Second hand tobacco smoke exposure: Yes Smoking end date: 08/07/09 Alcohol intake: current Drinks per week: 1 Alcohol use details: QUIT OVER A YEAR AGO - VERY LITTLE BEFORE THAT Substance use: former Substance use type: marijuana Last use: 06/13/20 Living arrangements: with family Additional living arrangements comments: DAUGHTERS Gender identity (if verbalized by the patient): Male Spiritual care concerns: No Comments At time of signature, I have reviewed and agree with nursing past medical, surgical, social and family history unless otherwise noted. Please see nursing chart for further information. There is no relevant family history pertinent to the presenting complaint Exam Narrative: GENERAL: Ill appearing, well-nourished. HEAD: Normocephalic, atraumatic. EYES: EOMI. No redness or drainage. Conjunctivae normal. ENT: Mucous membranes pink and moist. Nares clear. No rhinorrhea. TMs normal bilaterally. Throat normal. Uvula midline. Hoarse voice. NECK: Normal AROM. Supple. No lymphadenopathy. CHEST: Labored breathing. Inspiratory and expiratory wheezes throughout. HEART: Regular rhythm. Tachycardia. No murmur appreciated. ABDOMEN: Soft, nontender, nondistended, normal active bowel sounds. MUSCULOSKELETAL: No bony tenderness. EXTREMITIES: Normal range of motion. No edema. SKIN: Cold, dry, no rash. Capillary refill normal. Normal skin turgor. NEURO: No focal deficits. Alert and oriented x3. Gait steady. PSYCH: Normal affect. No signs of depression or anxiety. Course Course Emergency Course: Duoneb administered by RN Level of Care: Express Care Visit Vital Signs Vital signs: Vital Signs Pulse Rate 124 H 08/16/24 19:20 Respiratory Rate 20 08/16/24 19:20 Blood Pressure 138/76 08/16/24 19:20 Pulse Oximetry 89 L 08/16/24 19:20 Pulse Rate 124 H 08/16/24 19:20 Respiratory Rate 20 08/16/24 19:20 Blood Pressure 138/76 08/16/24 19:20 Pulse Oximetry 89 L 08/16/24 19:20 Reviewed. Temp 98.5? after sitting in exam room for 30 mins Transfer Transfered to: [facility] Transportation: ALS Transfer rationale: Respiratory distress, hypoxia Accepting physician: Yessenia Villareal comments: Report given to PRERNA Clinton MDM - SOB/Dyspnea MDM Narrative Medical decision making narrative: Patient will be transferred to the ER at [facility] for further evaluation of his symptoms. Differential Diagnosis Differential diagnosis: Likely acute exacerbation of chronic obstructive airways disease, community acquired pneumonia and other (Respiratory distress) Discharge Plan Discharge Clinical Impression: Acute respiratory distress, Hypoxia Patient Disposition: Acute Care Hospital Condition: Serious Patient Language: [place] Prescriptions: No Action doxycycline hyclate 100 mg capsule 100 mg PO BID 10 Days Qty: 20 0RF prednisone 20 mg tablet 20 mg PO BID 5 Days Qty: 10 0RF trazodone 100 mg tablet 100 mg PO QHS topiramate [Topamax] 200 mg tablet 200 mg PO DAILY Rx Instructions: PRESCRIBED BY NEUROLOGY hydroxychloroquine 200 mg tablet 200 mg PO DAILY rizatriptan 10 mg tablet See Rx Instructions PO .COMPLEX Rx Instructions: take 1 tab at onset of headache; if no relief may repeat 1 tab after at least 2 hrs; max = 3 tabs/24 hr PO alpha-1 proteinase inhib.(hum) 500 mg recon soln 120 mg IV .biweekly Rx Instructions: 120mg/kg biweekly Aralast multivitamin Tablet 1 tablet PO DAILY albuterol sulfate 1.25 mg/3 mL solution for nebulization 1.25 mg inhalation Q4-6H PRN (Reason: shortness of breath or wheezing) 30 Days Qty: 90 5RF Trelegy Ellipta 100-62.5-25 mcg blister with device 1 inh inhalation DAILY Qty: 60 5RF Rx Instructions: Rinse mouth and spit after each use clopidogrel [Plavix] 75 mg tablet 75 mg PO DAILY Qty: 90 0RF albuterol sulfate [Proventil HFA] 90 mcg/actuation HFA aerosol inhaler 2 puff INHALATION Q4-6H PRN (Reason: shortness of breath or wheezing) Qty: 8.5 2RF Follow-up/Referrals: UNKNOWN,DOCTOR [Primary Care Provider] - Time of Disposition: 19:43
[2024-08-16 19:40] VITALS: TEMP 36.9
== END 2024-08-16 19:51 | disposition short-term general hospital (02) ==
PROVIDERS: Emergency Provider Nurse Practitioner
DX: R06.03 Acute respiratory distress (principal); R09.02 Hypoxemia; J44.9 Chronic obstructive pulmonary disease, unspecified; Z87.891 Personal history of nicotine dependence
CPT/HCPCS: 99215; G0463